=== PATIENT | male | born 1955 | race Caucasian/White ===

== ENCOUNTER → 2016-09-27 | Outpatient (CLI) | payer BC ==
[~2016-09-27] MED LIST: ASPEC81 PO; CLR10 PO; LISI5TAB3 PO; OMEP40CA PO; SIMV10TA2 PO
[2016-09-27 11:18] LABS: AST/SGOT 17 U/L (15-37); BLOOD UREA NITROGEN 26 mg/dl (7-18); BUN/CREATININE RATIO 26.2 (10-20); CARBON DIOXIDE 30 mmol/L (21-32); CHLORIDE 106 mmol/L (98-107); GLUCOSE 106 mg/dl (70-99); POTASSIUM 4.4 mmol/L (3.5-5.1); SODIUM 141 mmol/L (136-145)
[2016-09-27 11:21] LABS: ALT/SGPT 26 U/L (12-78); CHOLESTEROL 155 mg/dl (0-200); HDL CHOLESTEROL 52 mg/dl; LDL CHOLESTEROL CALCULATED 91 mg/dl; TRIGLYCERIDES 62 mg/dl (0-150); VERY LOW DENSITY LIPOPROT CALC 12 mg/dl
[2016-09-27 12:29] LABS: ESTIMATED AVERAGE GLUCOSE 123 mg/dl; HA1C FLAG Normal (Normal)
== END | disposition home or self-care (01) ==
LOC: C.LABBC 07:36
DX: I10 Essential (primary) hypertension (principal); E78.5 Hyperlipidemia, unspecified; R73.9 Hyperglycemia, unspecified

== ENCOUNTER → 2017-04-12 | Outpatient (CLI) | payer BC ==
[2017-04-12 11:14] LABS: ALT/SGPT 23 U/L (12-78); AST/SGOT 20 U/L (15-37); BLOOD UREA NITROGEN 25 mg/dl (7-18); BUN/CREATININE RATIO 22.8 (10-20); CALCIUM 8.8 mg/dl (8.5-10.1); CARBON DIOXIDE 29 mmol/L (21-32); CHLORIDE 106 mmol/L (98-107); GLUCOSE 95 mg/dl (70-99); POTASSIUM 4.1 mmol/L (3.5-5.1); SODIUM 138 mmol/L (136-145)
== END | disposition home or self-care (01) ==
LOC: C.LABBC 07:27
DX: I10 Essential (primary) hypertension (principal); E78.5 Hyperlipidemia, unspecified

== ENCOUNTER → 2017-08-19 | Outpatient (CLI) | payer OTHER ==
--- NOTE | 2017-08-19 11:14 | DIAGNOSTIC IMAGING REPORT ---
TEMPOROMANDIBULAR JOINT CLINICAL HISTORY: R TMJ PAIN AND DYSFUNCTION pain COMPARISON STUDY: None FINDINGS: Opening closed mouth images of the temporomandibular joints show diminished anterior translation of the temporomandibular joints bilaterally. This is more prominent on the right as compared to the left. In the closed mouth position seen of the mandibular condyles is near anatomic. This appearance suggests anterior meniscal dislocation. IMPRESSION: 1. Very poor anterior translation of the mandibular condyles on the right and to lesser extent left. 2. This suggests possibility of anterior meniscal dislocation bilaterally. The above report was generated using voice recognition software. It may contain grammatical, syntax or spelling errors. Electronically signed by: Narciso Flowers M.D. 08/19/2017 11:13 AM Dictated Date/Time: 08/19/2017 11:12 AM
== END | disposition home or self-care (01) ==
LOC: C.RAD 10:50
PROVIDERS: ATTEND Chiropractor
DX: R68.84 Jaw pain (principal)

== ENCOUNTER → 2017-10-13 | Outpatient (CLI) | payer OTHER ==
[2017-10-13 11:22] LABS: ALT/SGPT 27 U/L (12-78); AST/SGOT 21 U/L (15-37); BLOOD UREA NITROGEN 24 mg/dl (7-18); CALCIUM 9.4 mg/dl (8.5-10.1); CARBON DIOXIDE 31 mmol/L (21-32); CHOLESTEROL 143 mg/dl (0-200); CREATININE 1.05 mg/dl (0.60-1.40); GLUCOSE 93 mg/dl (70-99); POTASSIUM 4.4 mmol/L (3.5-5.1); SODIUM 137 mmol/L (136-145)
[2017-10-13 11:25] LABS: LDL CHOLESTEROL CALCULATED 78 mg/dl
[2017-10-13 11:39] LABS: HEMOGLOBIN A1C 5.8 % (4.5-5.6)
== END | disposition home or self-care (01) ==
LOC: C.LABBC 07:41
DX: I10 Essential (primary) hypertension (principal); E78.5 Hyperlipidemia, unspecified

== ENCOUNTER 2025-04-16 11:57 | Inpatient (IN) ==
--- NOTE | 2025-04-16 12:12 | Emergency Department Note ---
Impression & Plan Atrial fibrillation with rapid ventricular response, Generalized weakness, Acute dehydration ED Provider Note NAME: ABRAM MADRIGAL AGE: 69 SEX: M : 1955 ARRIVES VIA: Ambulance INFORMANT: Patient, EMS ED PROVIDER(S): Yovanny Gomez DO CHIEF COMPLAINT: Weakness HPI: The patient is a 69-year-old male who presented to the emergency department by ambulance for generalized weakness. The patient's been having diarrhea over the last few days. Today he was having difficulty ambulating. His significant other called 911. The patient denies having any chest pain. He denies having any headache. He was felt to be somewhat confused by the prehospital personnel. The patient denies having any head injury. He denies having any lower extremity swelling or pain. He does have a history of atrial fibrillation. He does take blood thinners and states he has been compliant with his outpatient medication regimen. The patient was treated with IV fluids prior to arrival. ROS: See above HPI for pertinent positives & negatives. A total of 10 systems reviewed and were otherwise negative. PAST MEDICAL HISTORY: See Below PAST SURGICAL HISTORY: See Below FAMILY HISTORY: See Below SOCIAL HISTORY: See Below HOME MEDICATIONS: See Below ALLERGIES: See Below VITALS: See Below PHYSICAL EXAMINATION: GENERAL: The patient is awake and alert. He appears comfortable. EYES: The conjunctivae are clear. The pupils are round and reactive. EARS, NOSE, MOUTH AND THROAT: The nose is without any evidence of any deformity. NECK: The neck is nontender and supple. RESPIRATORY: Normal respiratory effort is noted there is no evidence of wheezing rhonchi or rales CARDIOVASCULAR: Tachycardic and irregular heart sounds were noted to auscultation. There is no definite murmur. GASTROINTESTINAL: The abdomen is soft. Abdomen is nontender. MUSCULOSKELETAL/EXTREMITIES: There is no evidence of gross deformity full range of motion is noted in the hips and shoulders. SKIN: There is no obvious evidence of any rash. There are no petechiae, pallor or cyanosis noted. NEUROLOGIC: Patient is awake and oriented x3 strength is symmetric patellar reflexes are 2+ bilaterally. Site Planner strength is symmetric. NIH is 0 MEDICAL DECISION MAKING: The patient is a 69-year-old male who presented to the emergency department for an evaluation of generalized weakness. The patient's been having some loose stools over the course the last few days. The patient had weakness while he was trying to ambulate. He was with his significant other who called 911. The patient was found to be in atrial fibrillation with RVR. This was treated with IV fluids IV magnesium as well as IV Cardizem. On reevaluation his pulse rate had improved. He was feeling somewhat improved. Given the patient's recent GI illness I would wonder if he is mildly dehydrated. He was found to have an elevation in his hemoglobin. I discussed the patient's laboratory and radiographic studies with him and his significant other. Given his findings I discussed his condition with the on-call [facility] group. They have agreed to evaluate the patient in the emergency department. Triage Nursing notes reviewed. Prior medical records reviewed Vital Signs: reviewed and remarkable for tachycardia. Differential diagnosis: Infection, dehydration, metabolic abnormality, hypo/hyperglycemia, electrolyte disturbance, anemia, hypoxia, cardiac sources, intracerebral event, toxicologic, neurologic, as well as other pathologies. ER treatment provided: See below Diagnostics interpreted by me: ECG: EKG was obtained in the emergency department. My interpretation is atrial fibrillation at 138 bpm. No PVCs were noted. Nonspecific ST abnormalities were appreciated. This was compared to a tracing from March 02, 2023. Sinus rhythm has been replaced with rapid atrial fibrillation compared to the previous tracing. Cardiac Monitoring: An order was placed for continuous cardiac monitoring. The monitor shows a rate of 107 bpm with atrial fibrillation. Laboratory studies: As stated above and show below. Imaging studies: See below. Radiographic imaging was reviewed by myself Consultation(s): I discussed this case with Dr. Ruiz who is on-call for the [facility] group. Past Med/Surg History Problem List (Updated 04/16/25 @ 15:06 by Yovanny Gomez DO) Acute dehydration (Acute) Generalized weakness (Acute) Atrial fibrillation with rapid ventricular response (Acute) Trigeminal autonomic cephalgias Bursitis of right hip Erectile dysfunction Atrial fibrillation (~01/20/23) Vitamin D deficiency Prediabetes Hypercholesteremia Hypertension GERD (gastroesophageal reflux disease) Canales's esophagus Arthritis Elevated PSA Migraine headache without aura Vitamin B12 deficiency BPH NOS w ur obs/LUTS Surgical History History of surgery vein surgery History of colonoscopy Hx of endoscopy H/O knee surgery History of appendectomy Family History Brother Esophageal cancer Heart disease Other Diabetes Denies family history of Ovarian cancer Prostate cancer Myocardial infarction Breast cancer Colorectal cancer Social History Smoking Status: Never smoker Tobacco Type: Declines Age Started Using Tobacco: 18; Age Quit Using Tobacco: 33; Second Hand Exposure: No; Do You Dip or Chew Tobacco: No; Hx Alcohol Use: Yes (Socially ) Hx Substance Use: No Preferred Language: Yakut Communication Ability: Effective Visual Impairment: Partially Limited Hearing Ability: Normal marital status: Current Living Situation: Spouse Current Living Situation Comment: current occupational status: retired How many Children do You have: 3 Feels Safe at Home: Yes Childhood Exposure to Second-Hand Smoke: Yes Diet: regular caffeine: Yes during the past year weight has: remained stable Dental Care, Regularly: Yes Physical Activity Frequency: 5-6 Times per Week Seatbelt Use: always Sunscreen Use: Yes Gender Identity: Male Assistive Devices: Glasses Allergies Allergies Allergy/AdvReac Type Severity Reaction Status Date / Time No Known Allergies Allergy Verified 04/08/25 08:53 Home Meds Home Medications Medication Instructions Recorded Confirmed metoprolol succinate 25 mg mg PO DAILY 03/25/25 04/08/25 tablet,extended release 24 hr Previous Rx's Medication Instructions Recorded cyanocobalamin (vitamin B-12) 2,500 mcg PO DAILY #30 tabs 12/08/21 2,500 mcg tablet cholecalciferol (vitamin D3) 50 50 mcg PO DAILY #30 caps 04/01/22 mcg (2,000 unit) capsule ferrous sulfate 325 mg (65 mg 325 mg PO DAILY #30 tabs 04/01/22 iron) tablet sildenafil 50 mg tablet 50 mg PO DAILY PRN sexual activity 03/08/24 #30 tabs tamsulosin 0.4 mg capsule 0.4 mg PO DAILY #90 caps 05/09/24 apixaban 5 mg tablet 5 mg PO BID #180 tabs 01/01/25 vibegron 75 mg tablet (Gemtesa) 75 mg PO DAILY #90 tabs 01/03/25 divalproex 500 mg tablet,extended 1,000 mg (2 x 500 mg) PO DAILY #60 02/20/25 release 24 hr tabs rizatriptan 10 mg disintegrating 10 mg PO Q2H PRN migraine headache 02/20/25 tablet #12 tabs atorvastatin 20 mg tablet 20 mg PO DAILY #90 tabs 02/22/25 triamcinolone acetonide 0.1 % 1 applic topical BID #15 grams 03/07/25 topical ointment omeprazole 40 mg capsule,delayed 40 mg PO BID #180 caps 03/26/25 release lisinopril 5 mg tablet 5 mg PO DAILY PRN elevated blood 04/14/25 pressure #30 tabs Results & Data (ED) Vital Signs Vital Signs - 24 hr 04/16/25 12:04 04/16/25 12:04 04/16/25 12:05 Temperature Temperature Source Pulse Rate 133 H Pulse Rate [Apical] Respiratory Rate Blood Pressure 111/92 111/92 Blood Pressure [Right Arm] Blood Pressure Mean 100 100 Blood Pressure Mean [Right Arm] Pulse Oximetry Oxygen Delivery Method Sepsis Recent Fever Within 48 Hours Sepsis New/Unexplained Change in Mental Status Sepsis Action Taken by Nursing 04/16/25 12:07 04/16/25 12:09 04/16/25 12:09 Temperature 36.7 C Temperature Source Oral Pulse Rate 122 H Pulse Rate [Apical] Respiratory Rate 19 Blood Pressure 111/92 Blood Pressure [Right Arm] Blood Pressure Mean 98 Blood Pressure Mean [Right Arm] Pulse Oximetry 96 96 96 Oxygen Delivery Method Room Air Room Air Room Air Sepsis Recent Fever Within 48 Hours No Sepsis New/Unexplained Change in Mental Status N/A Sepsis Action Taken by Nursing No Action Required 04/16/25 12:15 04/16/25 12:27 04/16/25 12:30 Temperature Temperature Source Pulse Rate 123 H 132 H Pulse Rate [Apical] Respiratory Rate 20 26 H Blood Pressure 109/77 Blood Pressure [Right Arm] Blood Pressure Mean 97 Blood Pressure Mean [Right Arm] Pulse Oximetry 93 95 Oxygen Delivery Method Sepsis Recent Fever Within 48 Hours Sepsis New/Unexplained Change in Mental Status Sepsis Action Taken by Nursing 04/16/25 12:33 04/16/25 13:00 04/16/25 13:18 Temperature Temperature Source Pulse Rate 129 H 132 H 104 H Pulse Rate [Apical] Respiratory Rate 24 21 22 Blood Pressure Blood Pressure [Right Arm] Blood Pressure Mean Blood Pressure Mean [Right Arm] Pulse Oximetry 95 Oxygen Delivery Method Sepsis Recent Fever Within 48 Hours Sepsis New/Unexplained Change in Mental Status Sepsis Action Taken by Nursing 04/16/25 13:21 04/16/25 13:30 04/16/25 13:30 Temperature Temperature Source Pulse Rate 128 H Pulse Rate [Apical] Respiratory Rate 24 Blood Pressure 127/91 127/91 Blood Pressure [Right Arm] Blood Pressure Mean 94 94 Blood Pressure Mean [Right Arm] Pulse Oximetry 94 Oxygen Delivery Method Sepsis Recent Fever Within 48 Hours Sepsis New/Unexplained Change in Mental Status Sepsis Action Taken by Nursing 04/16/25 13:30 04/16/25 13:49 04/16/25 13:54 Temperature Temperature Source Pulse Rate 140 H 105 H Pulse Rate [Apical] 125 H Respiratory Rate 23 20 23 Blood Pressure Blood Pressure [Right Arm] 127/91 Blood Pressure Mean Blood Pressure Mean [Right Arm] 103 Pulse Oximetry 94 95 Oxygen Delivery Method Room Air Sepsis Recent Fever Within 48 Hours Sepsis New/Unexplained Change in Mental Status Sepsis Action Taken by Nursing 04/16/25 14:00 04/16/25 14:01 04/16/25 14:25 Temperature Temperature Source Pulse Rate 107 H Pulse Rate [Apical] Respiratory Rate 24 Blood Pressure 121/89 119/99 Blood Pressure [Right Arm] Blood Pressure Mean 98 105 Blood Pressure Mean [Right Arm] Pulse Oximetry Oxygen Delivery Method Sepsis Recent Fever Within 48 Hours Sepsis New/Unexplained Change in Mental Status Sepsis Action Taken by Usp Medications Current Medication List: was personally reviewed by me Laboratory Data Attestation: I reviewed the patient's lab results. 04/16/25 12:07 04/16/25 12:07 Lab Results 04/16/25 04/16/25 04/16/25 Range/Units 12:07 12:09 12:10 WBC 16.47 H (4.8-10.8) K/ul RBC 5.39 (4.70-6.10) M/uL Hgb 18.1 H (14.0-18.0) g/dl Hct 51.4 (42.0-52.0) % MCV 95.4 (80.0-100.0) fL MCH 33.6 (25.0-34.0) pg MCHC 35.2 (32.0-36.0) g/dL RDW Std Deviation 46.1 (36.4-46.3) fL RDW Coeff of Rafal 13.0 (11.5-14.5) % Plt Count 143 (130-400) K/uL MPV 9.3 L (9.4-12.4) fL Immature Gran % (Auto) 0.4 % Neut % (Auto) 69.2 % Lymph % (Auto) 20.7 % [place] % (Auto) 9.3 % Eos % (Auto) 0.1 % Baso % (Auto) 0.3 % Neut # (Auto) 11.40 H (1.40-6.50) K/uL Lymph # (Auto) 3.41 H (1.20-3.40) K/uL [place] # (Auto) 1.53 H (0.11-0.59) K/uL Eos # (Auto) 0.02 (0.00-0.50) K/uL Baso # (Auto) 0.05 (0.00-0.20) K/uL Immature Gran # (Auto) 0.06 (0.01-0.20) K/uL PT 11.7 (9.0-12.0) Seconds INR 1.1 (0.9-1.1) APTT 27 (21-31) Seconds PTT Ratio 1.0 VBG pH 7.40 (7.36-7.41) VBG pCO2 51 H (38-50) mmHg VBG pO2 23 mmHg VBG HCO3 32 mmol/L VBG O2 Saturation < 60.0 % VBG Base Excess 5.0 mEq/L Sodium 138 (136-145) mmol/L Potassium 4.4 (3.5-5.1) mmol/L Chloride 102 (98-107) mmol/L Carbon Dioxide 30 (21-32) mmol/L Anion Gap 6 (3-11) BUN 16 (6-23) mg/dl Creatinine 1.05 (0.6-1.4) mg/dl Est Cr Clr Drug Dosing 68.7 ml/min eGFR 75.89 BUN/Creatinine Ratio 15.2 (10-20) Glucose 113 H (70-99(Fasting)) mg/dl POC Glucose 106 H (70-99) mg/dl Calcium 9.0 (8.6-10.3) mg/dl Magnesium 1.8 (1.7-2.4) mg/dl Total Bilirubin 1.0 (0.2-1.0) mg/dl AST 16 (13-39) U/L ALT 12 (7-52) U/L Alkaline Phosphatase 48 (34-104) U/L Ammonia 29.0 (18-72) umol/L Total Creatine Kinase 51 (30-223) U/L Troponin I High Sens 7.6 (0-20) pg/ml Total Protein 6.9 (6.0-8.3) gm/dl Albumin 3.9 (3.4-5.0) gm/dl Globulin 3.0 (2.5-4.0) gm/dl Albumin/Globulin Ratio 1.3 (0.9-2) TSH 1.640 (0.300-4.500) uIu/ml Urine Color Urine Appearance (Clear) Urine pH (4.5-7.5) Ur Specific [place] (1.000-1.030) Urine Protein (Negative) Urine Glucose (UA) (Negative) Urine Ketones (Negative) Urine Blood (Negative) Urine Nitrite (Negative) Urine Bilirubin (Negative) Urine Urobilinogen (Negative) Ur Leukocyte Esterase (Negative) Urine Comment Adenovirus (PCR) Not Detected (NotDetected) B. pertussis DNA (PCR) Not Detected (NotDetected) B.parapertussis DNA PCR Not Detected (NotDetected) C. pneumoniae DNA (PCR) Not Detected (NotDetected) Coronavirus OC43 (PCR) Not Detected (NotDetected) Coronavirus HKU1 (PCR) Not Detected (NotDetected) Coronavirus 229E (PCR) Not Detected (NotDetected) SARS-CoV-2 (PCR) Not Detected (NotDetected) Coronavirus NL63 (PCR) Not Detected (NotDetected) Human Metapneumovir PCR Not Detected (NotDetected) Influenza Type A (PCR) Not Detected (NotDetected) Influenza Type B (PCR) Not Detected (NotDetected) M. pneumoniae (PCR) Not Detected (NotDetected) Parainfluenza 1 (PCR) Not Detected (NotDetected) Parainfluenza 2 (PCR) Not Detected (NotDetected) Parainfluenza 3 (PCR) Not Detected (NotDetected) Parainfluenza 4 (PCR) Not Detected (NotDetected) RSV (PCR) Not Detected (NotDetected) Entero/Rhino (PCR) DETECTED A (NotDetected) 04/16/25 Range/Units 13:10 WBC (4.8-10.8) K/ul RBC (4.70-6.10) M/uL Hgb (14.0-18.0) g/dl Hct (42.0-52.0) % MCV (80.0-100.0) fL MCH (25.0-34.0) pg MCHC (32.0-36.0) g/dL RDW Std Deviation (36.4-46.3) fL RDW Coeff of Rafal (11.5-14.5) % Plt Count (130-400) K/uL MPV (9.4-12.4) fL Immature Gran % (Auto) % Neut % (Auto) % Lymph % (Auto) % [place] % (Auto) % Eos % (Auto) % Baso % (Auto) % Neut # (Auto) (1.40-6.50) K/uL Lymph # (Auto) (1.20-3.40) K/uL [place] # (Auto) (0.11-0.59) K/uL Eos # (Auto) (0.00-0.50) K/uL Baso # (Auto) (0.00-0.20) K/uL Immature Gran # (Auto) (0.01-0.20) K/uL PT (9.0-12.0) Seconds INR (0.9-1.1) APTT (21-31) Seconds PTT Ratio VBG pH (7.36-7.41) VBG pCO2 (38-50) mmHg VBG pO2 mmHg VBG HCO3 mmol/L VBG O2 Saturation % VBG Base Excess mEq/L Sodium (136-145) mmol/L Potassium (3.5-5.1) mmol/L Chloride (98-107) mmol/L Carbon Dioxide (21-32) mmol/L Anion Gap (3-11) BUN (6-23) mg/dl Creatinine (0.6-1.4) mg/dl Est Cr Clr Drug Dosing ml/min eGFR BUN/Creatinine Ratio (10-20) Glucose (70-99(Fasting)) mg/dl POC Glucose (70-99) mg/dl Calcium (8.6-10.3) mg/dl Magnesium (1.7-2.4) mg/dl Total Bilirubin (0.2-1.0) mg/dl AST (13-39) U/L ALT (7-52) U/L Alkaline Phosphatase (34-104) U/L Ammonia (18-72) umol/L Total Creatine Kinase (30-223) U/L Troponin I High Sens (0-20) pg/ml Total Protein (6.0-8.3) gm/dl Albumin (3.4-5.0) gm/dl Globulin (2.5-4.0) gm/dl Albumin/Globulin Ratio (0.9-2) TSH (0.300-4.500) uIu/ml Urine Color Yellow Urine Appearance Clear (Clear) Urine pH 7.0 (4.5-7.5) Ur Specific [place] 1.014 (1.000-1.030) Urine Protein Negative (Negative) Urine Glucose (UA) Negative (Negative) Urine Ketones Trace H (Negative) Urine Blood Negative (Negative) Urine Nitrite Negative (Negative) Urine Bilirubin Negative (Negative) Urine Urobilinogen Negative (Negative) Ur Leukocyte Esterase Negative (Negative) Urine Comment Adenovirus (PCR) (NotDetected) B. pertussis DNA (PCR) (NotDetected) B.parapertussis DNA PCR (NotDetected) C. pneumoniae DNA (PCR) (NotDetected) Coronavirus OC43 (PCR) (NotDetected) Coronavirus HKU1 (PCR) (NotDetected) Coronavirus 229E (PCR) (NotDetected) SARS-CoV-2 (PCR) (NotDetected) Coronavirus NL63 (PCR) (NotDetected) Human Metapneumovir PCR (NotDetected) Influenza Type A (PCR) (NotDetected) Influenza Type B (PCR) (NotDetected) M. pneumoniae (PCR) (NotDetected) Parainfluenza 1 (PCR) (NotDetected) Parainfluenza 2 (PCR) (NotDetected) Parainfluenza 3 (PCR) (NotDetected) Parainfluenza 4 (PCR) (NotDetected) RSV (PCR) (NotDetected) Entero/Rhino (PCR) (NotDetected) Administered Medications Discontinued Medications Diltiazem HCl (Diltiazem Hcl 5 Mg/Ml 5 Ml Vial) 10 mg IV NOW STA Stop: 04/16/25 14:15 Last Admin: 04/16/25 14:22 Dose: 10 mg Documented By: JIGNA Co-signed By: ERLINDA Sodium Chloride (Nss) 500 mls @ 999 mls/hr IV .Q31M ONE Stop: 04/16/25 12:52 Last Infusion: 04/16/25 13:25 Dose: Infused Documented By: Admin: 04/16/25 12:33 Dose: 999 mls/hr Documented By: AMEENA Magnesium Sulfate/Dextrose (Magnesium Sulfate / D5w) 1 gm in 100 mls @ 100 mls/hr IV Q1H NELI Stop: 04/16/25 14:21 Last Infusion: 04/16/25 14:16 Dose: Infused Documented By: Admin: 04/16/25 13:25 Dose: 100 mls/hr Documented By: Infusion: 04/16/25 13:25 Dose: Infused Documented By: Admin: 04/16/25 12:34 Dose: 100 mls/hr Documented By: AMENEA Sodium Chloride (Nss) 500 mls @ 999 mls/hr IV .Q31M ONE Stop: 04/16/25 14:52 Last Admin: 04/16/25 14:27 Dose: 999 mls/hr Documented By: JIGNA Imaging Data Attestation: I personally reviewed and interpreted this imaging study as follows: My Impression: 1 view chest x-ray was obtained in the emergency department. My interpretation is no free air or definite infiltrate, final report below. Radiologist's Impression: Chest X-Ray 04/16/25 12:01 XR chest 1V portable CLINICAL HISTORY: weakness COMPARISON STUDY: 02/28/2018 FINDINGS: Stable mild cardiomegaly without pulmonary vascular congestion. No consolidation or pleural effusion. No pneumothorax. IMPRESSION: No acute findings. ACT 112: Negative or not required by law. Electronically signed by: Hermelindo Vences M.D. 04/16/2025 12:[address] 04/16/25 12:01 CT SCAN OF THE BRAIN WITHOUT IV CONTRAST CLINICAL HISTORY: Change in mental status. COMPARISON STUDY: MRI of the brain dated 11/20/2021 TECHNIQUE: Unenhanced CT scan of the brain is performed from the vertex to the skull base. Images are reviewed in the axial, sagittal, coronal planes. A dose lowering technique was utilized adhering to the principles of ALARA. CT DOSE: 625.8 mGy.cm FINDINGS: Brain parenchyma: There is age-related involutional change noting mild subcortical and periventricular microangiopathic disease. There is no hemorrhage, mass effect, or evidence of acute territorial ischemia by CT criteria. [place]as[place]-white matter differentiation is preserved. No extra-axial fluid collection is seen. Ventricles, sulci, cisterns: Prominent secondary to involutional change. Intracranial vasculature: There is mild atherosclerotic calcification of the cavernous carotid and vertebral arteries. Calvarium: Unremarkable. Sinuses and mastoids: There is trace mucosal thickening in the right sphenoid sinus. The visualized paranasal sinuses are otherwise clear. The mastoid air cells are well pneumatized. Orbits: The bony orbits are grossly intact. IMPRESSION: There is no hemorrhage, mass effect, or evidence of acute territorial ischemia by CT criteria. ACT 112: Negative or not required by law. Electronically signed by: Winston Fowler M.D. 04/16/2025 12:49 PM Discharge Plan Visit Data Chief Complaint: Weakness ED Provider: Yovanny Gomez Discharge Problem: Atrial fibrillation with rapid ventricular response, Generalized weakness, Acute dehydration Patient Disposition: Being Evaluated by Hospitalist Condition: Fair Forms Stand Alone Forms: My [facility] Prescriptions Prescriptions: No Action cholecalciferol (vitamin D3) 50 mcg (2,000 unit) capsule 50 mcg PO DAILY Qty: 30 8RF ferrous sulfate 325 mg (65 mg iron) tablet 325 mg PO DAILY Qty: 30 8RF sildenafil 50 mg tablet 50 mg PO DAILY PRN (Reason: sexual activity) Qty: 30 3RF Rx Instructions: administer 30 minutes to 4 hours before activity tamsulosin 0.4 mg capsule 0.4 mg PO DAILY Qty: 90 3RF apixaban 5 mg tablet 5 mg PO BID Qty: 180 3RF Gemtesa 75 mg tablet 75 mg PO DAILY Qty: 90 3RF atorvastatin 20 mg tablet 20 mg PO DAILY Qty: 90 3RF omeprazole 40 mg capsule,delayed release(DR/EC) 40 mg PO BID Qty: 180 3RF cyanocobalamin (vitamin B-12) 2,500 mcg tablet 2,500 mcg PO DAILY Qty: 30 8RF divalproex 500 mg tablet extended release 24 hr 1,000 mg PO DAILY Qty: 60 5RF rizatriptan 10 mg tablet,disintegrating 10 mg PO Q2H PRN (Reason: migraine headache) Qty: 12 5RF Rx Instructions: do not exceed 3 doses per 24 hrs lisinopril 5 mg tablet 5 mg PO DAILY PRN (Reason: elevated blood pressure ) Qty: 30 0RF triamcinolone acetonide 0.1 % ointment 1 applic topical BID Qty: 15 1RF metoprolol succinate 25 mg tablet extended release 24 hr PO DAILY Referrals Referrals: Lisa Browning MD [Primary Care Provider] -
--- NOTE | 2025-04-16 12:15 | XRay Report ---
XR chest 1V portable CLINICAL HISTORY: weakness COMPARISON STUDY: 02/28/2018 FINDINGS: Stable mild cardiomegaly without pulmonary vascular congestion. No consolidation or pleural effusion. No pneumothorax. IMPRESSION: No acute findings. ACT 112: Negative or not required by law. Electronically signed by: Hermelindo Vences M.D. 04/16/2025 12:13 PM
[2025-04-16 12:18] LABS: Base Excess VBG 5.0 mEq/L; HCO3 VBG 32 mmol/L; Oxygen Saturation VBG < 60.0 %; PCO2 VBG 51 mmHg (38-50); PO2 VBG 23 mmHg; pH VBG 7.40 (7.36-7.41)
[2025-04-16 12:24] LABS: Hematocrit (blood only) 51.4 % (42.0-52.0); Hemoglobin 18.1 g/dl (14.0-18.0); Immature Granulocytes # (auto) 0.06 K/uL (0.01-0.20); Immature Granulocytes % (auto) 0.4 %; Mean Corpuscular Hemoglobin 33.6 pg (25.0-34.0); Mean Corpuscular Volume 95.4 fL (80.0-100.0); Platelet Count 143 K/uL (130-400); RDW Standard Deviation 46.1 fL (36.4-46.3); Red Blood Count 5.39 M/uL (4.70-6.10); White Blood Count 16.47 K/ul (4.8-10.8)
[2025-04-16] MEDS: SODIUM CHLORIDE 0.9% 500 ML IV ONE ×2 (12:33→14:27)
[2025-04-16] MEDS: MAGNESIUM SULFATE / D5W 1 GM/100 ML BAG IV SCH (12:34)
[2025-04-16 12:51] LABS: INR 1.1 (0.9-1.1); Partial Thromboplastin Time 27 Seconds (21-31); Prothrombin Time 11.7 Seconds (9.0-12.0)
--- NOTE | 2025-04-16 12:51 | CT Scan Report ---
CT SCAN OF THE BRAIN WITHOUT IV CONTRAST CLINICAL HISTORY: Change in mental status. COMPARISON STUDY: MRI of the brain dated 11/20/2021 TECHNIQUE: Unenhanced CT scan of the brain is performed from the vertex to the skull base. Images are reviewed in the axial, sagittal, coronal planes. A dose lowering technique was utilized adhering to the principles of ALARA. CT DOSE: 625.8 mGy.cm FINDINGS: Brain parenchyma: There is age-related involutional change noting mild subcortical and periventricula r microangiopathic disease. There is no hemorrhage, mass effect, or evidence of acute territorial isc hemia by CT criteria. [place]-white matter differentiation is preserved. No extra-axial fluid collection is seen. Ventricles, sulci, cisterns: Prominent secondary to involutional change. Intracranial vasculature: There is mild atherosclerotic calcification of the cavernous carotid and ve rtebral arteries. Calvarium: Unremarkable. Sinuses and mastoids: There is trace mucosal thickening in the right sphenoid sinus. The visualized p aranasal sinuses are otherwise clear. The mastoid air cells are well pneumatized. Orbits: The bony orbits are grossly intact. IMPRESSION: There is no hemorrhage, mass effect, or evidence of acute territorial ischemia by CT hajat james. ACT 112: Negative or not required by law. Electronically signed by: Winston Fowler M.D. 04/16/2025 12:49 PM
[2025-04-16 13:01] LABS: Alanine Aminotransferase 12.0 U/L (7-52); Albumin Globulin Ratio 1.3 (0.9-2); Albumin Level 3.9 gm/dl (3.4-5.0); Alkaline Phosphatase 48.0 U/L (34-104); Anion Gap 6.0 (3-11); Bilirubin,Total 1.0 mg/dl (0.2-1.0); Blood Urea Nitrogen 16.0 mg/dl (6-23); Calcium 9.0 mg/dl (8.6-10.3); Carbon Dioxide 30.0 mmol/L (21-32); Chloride 102.0 mmol/L (98-107); Creatine Kinase 51.0 U/L (30-223); Creatinine Clr Calc Pharmacy 68.7 ml/min; Globulin 3.0 gm/dl (2.5-4.0); Glucose 113.0 mg/dl (70-99(Fasting)); Magnesium 1.8 mg/dl (1.7-2.4); Potassium 4.4 mmol/L (3.5-5.1); Sodium 138.0 mmol/L (136-145); Total Protein 6.9 gm/dl (6.0-8.3)
[2025-04-16 13:13] LABS: Thyroid Stimulating Hormone 1.64 uIu/ml (0.300-4.500)
[2025-04-16 13:42] LABS: Appearance Urine Clear (Clear); Glucose Urine UA Negative (Negative)
[2025-04-16 13:56] LABS: Chlamydia pneumoniae PCR Not Detected (NotDetected); Coronavirus 229E PCR Not Detected (NotDetected); Coronavirus CoV-2 (COVID19)PCR Not Detected (NotDetected); Coronavirus HKU1 PCR Not Detected (NotDetected); Coronavirus NL63 PCR Not Detected (NotDetected); Coronavirus OC43PCR Not Detected (NotDetected); Human Metapneumovirus PCR Not Detected (NotDetected); Parainfluenza Virus 1 PCR Not Detected (NotDetected); Parainfluenza Virus 2 PCR Not Detected (NotDetected); Parainfluenza Virus 3 PCR Not Detected (NotDetected); Parainfluenza Virus 4 PCR Not Detected (NotDetected); Respiratory Syncytial VirusPCR Not Detected (NotDetected); Rhinovirus/Enterovirus PCR DETECTED (NotDetected)
--- NOTE | 2025-04-16 15:24 | History & Physical Report ---
Date of Service April 16, 2025 Assessment & Plan (1) Acute dehydration: (2) Generalized weakness: (3) Atrial fibrillation with rapid ventricular response: (4) Trigeminal autonomic cephalgias: (5) Vitamin D deficiency: (6) Prediabetes: (7) Canales's esophagus: (8) Elevated PSA: Plan #Weakness #SIRS #enteroviral infection - multifactorial, volume depletion secondary to recent viral infection, will continue to trend inflammatory markers, no indication for antibiotics at this time. - Normal saline at 100 cc/h through the night - PT and OT assessment in the morning - admit telemetry given atrial fibrillation and history of coronary disease belo w #ketones in urine #volume depletion - fluids as above #atrial fibrillation - improving with fluid resuscitation, continue metoprolol, continue apixaban #coronary disease - no concerning symptoms for ACS, will continue to monitor with telemetry #chronic venous stasis changes - he has an upcoming procedure planned, monitor ulceration and consult wound care #polycythemia - likely secondary to volume depletion, fluid resuscitation as noted below. Repeat a.m. labs #hypertension - at goal at this time, continue antihypertensives #prediabetes - A1c is 6, will check AC blood sugars with sliding scale initially #GERD #Canales's esophagus - continue Protonix #prior Lyme positive serology - will review outpatient notes, this was ordered a few weeks ago. Result just appearing no clear indication of active infection #FEN #cognitive changes - ongoing outpatient workup, CT was negative here. With any cognitive or s ignificant short-term changes will consider MRI. This is scheduled as an outpatient #CODE STATUS - DNR/DNI per his wishes. According to his they both have advanced di rectives with this documented History of Present Illness Chief Complaint: Weakness Primary Care Provider: Lisa Browning MD 69-year-old male history of atrial fibrillation, known coronary disease, chronic venous stasis with ulcerations, trigeminal autonomic cephalgia, migraine, hypertension, hypercholesterolemia, GERD with Canales's esophagus, elevated PSA, vitamin B12 deficiency presents to the emergency department with a 2-day history of upper head cold congestion, sore throat and now with diarrhea. Predominant presenting complaint was the overall weakness. Denies any dizziness orthostasis PND. No worsening lower extremity edema. Initial evaluation in the emergency department showed elevated hemoglobin, clinical signs of dehydration, likely volume depletion with mild tachycardia. Concern for sepsis. [employer] revealed enterovirus positive. Secondary to his weakness, tachycardia and minimal improvement with symptoms he referred for admission for further resuscitation, evaluation and supportive cares Allergies Allergy/AdvReac Type Severity Reaction Status Date / Time No Known Allergies Allergy Verified 04/08/25 08:53 Home Medications Medication Instructions Recorded Confirmed Type cyanocobalamin (vitamin B-12) 2,500 mcg PO DAILY #30 tabs 12/08/21 04/16/25 Rx 2,500 mcg tablet cholecalciferol (vitamin D3) 50 50 mcg PO DAILY #30 caps 04/01/22 04/16/25 Rx mcg (2,000 unit) capsule ferrous sulfate 325 mg (65 mg 325 mg PO DAILY #30 tabs 04/01/22 04/16/25 Rx iron) tablet sildenafil 50 mg tablet 50 mg PO DAILY PRN sexual activity 03/08/24 04/16/25 Rx #30 tabs tamsulosin 0.4 mg capsule 0.4 mg PO DAILY #90 caps 05/09/24 04/16/25 Rx apixaban 5 mg tablet 5 mg PO BID #180 tabs 01/01/25 04/16/25 Rx vibegron 75 mg tablet (Gemtesa) 75 mg PO DAILY #90 tabs 01/03/25 04/16/25 Rx divalproex 500 mg tablet,extended 1,000 mg (2 x 500 mg) PO DAILY #60 02/20/25 04/16/25 Rx release 24 hr tabs rizatriptan 10 mg disintegrating 10 mg PO Q2H PRN migraine headache 02/20/25 04/16/25 Rx tablet #12 tabs atorvastatin 20 mg tablet 20 mg PO DAILY #90 tabs 02/22/25 04/16/25 Rx metoprolol succinate 25 mg 50 mg PO DAILY 03/25/25 04/16/25 History tablet,extended release 24 hr omeprazole 40 mg capsule,delayed 40 mg PO BID #180 caps 03/26/25 04/16/25 Rx release lisinopril 5 mg tablet 0 mg PO DAILY PRN elevated blood 04/16/25 04/16/25 History pressure triamcinolone acetonide 0.1 % 0 applic topical BID 04/16/25 04/16/25 History topical ointment Past Med/Surg History Problem List (Updated 04/16/25 @ 15:06 by Yovanny Gomez DO) Acute dehydration (Acute) Generalized weakness (Acute) Atrial fibrillation with rapid ventricular response (Acute) Trigeminal autonomic cephalgias Bursitis of right hip Erectile dysfunction Atrial fibrillation (~01/20/23) Vitamin D deficiency Prediabetes Hypercholesteremia Hypertension GERD (gastroesophageal reflux disease) Canales's esophagus Arthritis Elevated PSA Migraine headache without aura Vitamin B12 deficiency BPH NOS w ur obs/LUTS Surgical History History of surgery vein surgery History of colonoscopy Hx of endoscopy H/O knee surgery History of appendectomy Family History Brother Esophageal cancer Heart disease Other Diabetes Denies family history of Ovarian cancer Prostate cancer Myocardial infarction Breast cancer Colorectal cancer Social History Smoking Status: Never smoker Tobacco Type: Declines Age Started Using Tobacco: 18; Age Quit Using Tobacco: 33; Second Hand Exposure: No; Do You Dip or Chew Tobacco: No; Hx Alcohol Use: Yes (Socially ) Hx Substance Use: No Preferred Language: Bengali Communication Ability: Effective Visual Impairment: Partially Limited Hearing Ability: Normal marital status: Current Living Situation: Spouse Current Living Situation Comment: current occupational status: retired How many Children do You have: 3 Feels Safe at Home: Yes Childhood Exposure to Second-Hand Smoke: Yes Diet: regular caffeine: Yes during the past year weight has: remained stable Dental Care, Regularly: Yes Physical Activity Frequency: 5-6 Times per Week Seatbelt Use: always Sunscreen Use: Yes Gender Identity: Male Assistive Devices: Glasses Review of Systems Constitutional: no fevers, see HPI Respiratory: no shortness of breath or wheezing Cardiovascular: Additional Comments: no palpitations or chest pain Gastrointestinal: mild loose stools, no nausea vomiting Neurologic: he reports increasing memory difficulties he is ongoing workup through the neur ology clinic with labs being evaluated. MRI is pending Physical Exam Constitutional: comfortable, sitting in hospital bed, openly conversive and appropriate, no distress Eyes: sclera clear ENMT: erythematous oropharynx, no tonsillar hypertrophy or anterior adenopathy Respiratory: clear to auscultation bilaterally Cardiovascular: tachycardic, regular, no murmurs rubs or gallops Gastrointestinal (Abdomen): normal bowel sounds, nontender, nondistended Musculoskeletal: moving all extremities with no limitations or difficulty Skin: chronic venous stasis changes in the lower extremities bilaterally with no other rash or skin change Neurologic: alert and oriented x 4, although he is somewhat slowed in response to questioning. Has difficulty with recall of recent and distant events at times. Otherwise no dysmetria or dysarthria. Results & Data Results & Data Vital Signs (Past 12 Hours) Vital Signs Temp Pulse Pulse Resp BP BP Pulse Ox 04/16/25 15:00 86 22 114/75 95 04/16/25 14:25 119/99 04/16/25 14:01 121/89 04/16/25 14:00 107 H 24 04/16/25 13:54 105 H 23 95 04/16/25 13:49 125 H 20 127/91 94 04/16/25 13:30 140 H 23 04/16/25 13:30 127/91 04/16/25 13:30 127/91 04/16/25 13:21 128 H 24 94 04/16/25 13:18 104 H 22 95 04/16/25 13:00 132 H 21 04/16/25 12:33 129 H 24 04/16/25 12:30 109/77 04/16/25 12:27 132 H 26 H 95 04/16/25 12:15 123 H 20 93 04/16/25 12:09 36.7 C 122 H 19 111/92 96 04/16/25 12:09 96 04/16/25 12:07 96 04/16/25 12:05 133 H 04/16/25 12:04 111/92 04/16/25 12:04 111/92 O2 Del Method 04/16/25 15:00 Room Air 04/16/25 14:25 04/16/25 14:01 04/16/25 14:00 04/16/25 13:54 04/16/25 13:49 Room Air 04/16/25 13:30 04/16/25 13:30 04/16/25 13:30 04/16/25 13:21 04/16/25 13:18 04/16/25 13:00 04/16/25 12:33 04/16/25 12:30 04/16/25 12:27 04/16/25 12:15 04/16/25 12:09 Room Air 04/16/25 12:09 Room Air 04/16/25 12:07 Room Air 04/16/25 12:05 04/16/25 12:04 04/16/25 12:04 Laboratory Results 04/16/25 04/16/25 04/16/25 13:10 12:10 12:09 WBC RBC Hgb Hct MCV MCH MCHC RDW Std Deviation RDW Coeff of Rafal Plt Count MPV Immature Gran % (Auto) Neut % (Auto) Lymph % (Auto) [place] % (Auto) Eos % (Auto) Baso % (Auto) Neut # (Auto) Lymph # (Auto) [place] # (Auto) Eos # (Auto) Baso # (Auto) Immature Gran # (Auto) PT INR APTT PTT Ratio VBG pH VBG pCO2 VBG pO2 VBG HCO3 VBG O2 Saturation VBG Base Excess Sodium Potassium Chloride Carbon Dioxide Anion Gap BUN Creatinine Est Cr Clr Drug Dosing eGFR BUN/Creatinine Ratio Glucose POC Glucose 106 H Calcium Magnesium Total Bilirubin AST ALT Alkaline Phosphatase Ammonia Total Creatine Kinase Troponin I High Sens Total Protein Albumin Globulin Albumin/Globulin Ratio TSH Urine Color Yellow Urine Appearance Clear Urine pH 7.0 Ur Specific [place] 1.014 Urine Protein Negative Urine Glucose (UA) Negative Urine Ketones Trace H Urine Blood Negative Urine Nitrite Negative Urine Bilirubin Negative Urine Urobilinogen Negative Ur Leukocyte Esterase Negative Urine Comment Adenovirus (PCR) Not Detected B. pertussis DNA (PCR) Not Detected B.parapertussis DNA PCR Not Detected C. pneumoniae DNA (PCR) Not Detected Coronavirus OC43 (PCR) Not Detected Coronavirus HKU1 (PCR) Not Detected Coronavirus 229E (PCR) Not Detected SARS-CoV-2 (PCR) Not Detected Coronavirus NL63 (PCR) Not Detected Human Metapneumovir PCR Not Detected Influenza Type A (PCR) Not Detected Influenza Type B (PCR) Not Detected M. pneumoniae (PCR) Not Detected Parainfluenza 1 (PCR) Not Detected Parainfluenza 2 (PCR) Not Detected Parainfluenza 3 (PCR) Not Detected Parainfluenza 4 (PCR) Not Detected RSV (PCR) Not Detected Entero/Rhino (PCR) DETECTED A 04/16/25 12:07 WBC 16.47 H RBC 5.39 Hgb 18.1 H Hct 51.4 MCV 95.4 MCH 33.6 MCHC 35.2 RDW Std Deviation 46.1 RDW Coeff of Rafal 13.0 Plt Count 143 MPV 9.3 L Immature Gran % (Auto) 0.4 Neut % (Auto) 69.2 Lymph % (Auto) 20.7 [place] % (Auto) 9.3 Eos % (Auto) 0.1 Baso % (Auto) 0.3 Neut # (Auto) 11.40 H Lymph # (Auto) 3.41 H [place] # (Auto) 1.53 H Eos # (Auto) 0.02 Baso # (Auto) 0.05 Immature Gran # (Auto) 0.06 PT 11.7 INR 1.1 APTT 27 PTT Ratio 1.0 VBG pH 7.40 VBG pCO2 51 H VBG pO2 23 VBG HCO3 32 VBG O2 Saturation < 60.0 VBG Base Excess 5.0 Sodium 138 Potassium 4.4 Chloride 102 Carbon Dioxide 30 Anion Gap 6 BUN 16 Creatinine 1.05 Est Cr Clr Drug Dosing 68.7 eGFR 75.89 BUN/Creatinine Ratio 15.2 Glucose 113 H POC Glucose Calcium 9.0 Magnesium 1.8 Total Bilirubin 1.0 AST 16 ALT 12 Alkaline Phosphatase 48 Ammonia 29.0 Total Creatine Kinase 51 Troponin I High Sens 7.6 Total Protein 6.9 Albumin 3.9 Globulin 3.0 Albumin/Globulin Ratio 1.3 TSH 1.640 Urine Color Urine Appearance Urine pH Ur Specific [place] Urine Protein Urine Glucose (UA) Urine Ketones Urine Blood Urine Nitrite Urine Bilirubin Urine Urobilinogen Ur Leukocyte Esterase Urine Comment Adenovirus (PCR) B. pertussis DNA (PCR) B.parapertussis DNA PCR C. pneumoniae DNA (PCR) Coronavirus OC43 (PCR) Coronavirus HKU1 (PCR) Coronavirus 229E (PCR) SARS-CoV-2 (PCR) Coronavirus NL63 (PCR) Human Metapneumovir PCR Influenza Type A (PCR) Influenza Type B (PCR) M. pneumoniae (PCR) Parainfluenza 1 (PCR) Parainfluenza 2 (PCR) Parainfluenza 3 (PCR) Parainfluenza 4 (PCR) RSV (PCR) Entero/Rhino (PCR) Diagnostic Findings Chest X-Ray 04/16/25 12:01 XR chest 1V portable CLINICAL HISTORY: weakness COMPARISON STUDY: 02/28/2018 FINDINGS: Stable mild cardiomegaly without pulmonary vascular congestion. No consolidation or pleural effusion. No pneumothorax. IMPRESSION: No acute findings. ACT 112: Negative or not required by law. Electronically signed by: Hermelindo Vences M.D. 04/16/2025 12:[address] 04/16/25 12:01 CT SCAN OF THE BRAIN WITHOUT IV CONTRAST CLINICAL HISTORY: Change in mental status. COMPARISON STUDY: MRI of the brain dated 11/20/2021 TECHNIQUE: Unenhanced CT scan of the brain is performed from the vertex to the skull base. Images are reviewed in the axial, sagittal, coronal planes. A dose lowering technique was utilized adhering to the principles of ALARA. CT DOSE: 625.8 mGy.cm FINDINGS: Brain parenchyma: There is age-related involutional change noting mild subcortical and periventricular microangiopathic disease. There is no hemorrhage, mass effect, or evidence of acute territorial ischemia by CT criteria. [place]-white matter differentiation is preserved. No extra-axial fluid collection is seen. Ventricles, sulci, cisterns: Prominent secondary to involutional change. Intracranial vasculature: There is mild atherosclerotic calcification of the cavernous carotid and vertebral arteries. Calvarium: Unremarkable. Sinuses and mastoids: There is trace mucosal thickening in the right sphenoid sinus. The visualized paranasal sinuses are otherwise clear. The mastoid air cells are well pneumatized. Orbits: The bony orbits are grossly intact. IMPRESSION: There is no hemorrhage, mass effect, or evidence of acute territorial ischemia by CT criteria. ACT 112: Negative or not required by law. Electronically signed by: Winston Fowler M.D. 04/16/2025 12:49 PM Code Status & VTE Plan VTE Prophylaxis Plan VTE Prophylaxis will be ordered: Yes PG Care Time/CCT Total # of Minutes Spent Total Time Spent with Patient: Total time spent is greater than 50% in coordination of care (as documented) at patient's floor/unit and/or counseling patient: Coding Level of Care Code 12232 INT INP/OBS CARE 2/55MIN Diagnoses Acute dehydration E86.0 Generalized weakness R53.1 Atrial fibrillation with rapid ventricular response I48.91 Trigeminal autonomic cephalgias G44.099 Vitamin D deficiency E55.9 Prediabetes R73.03 Canales's esophagus K22.70 Elevated PSA R97.20
[2025-04-16] MEDS ORDERED: ONDANSETRON INJ 2 MG/ML 2 ML VIAL IV PRN (16:21)
[2025-04-16] MEDS ORDERED: POLYETHYLENE (MIRALAX) 17 GM PACK PO PRN (16:21)
[2025-04-16] MEDS ORDERED: MELATONIN 3 MG TAB PO PRN (16:21)
[2025-04-16] MEDS: TAMSULOSIN HCL 0.4 MG CAP PO SCH (20:38)
[2025-04-16] MEDS: DIVALPROEX EXTENDED RELEASE 500 MG TAB PO SCH (20:39)
[2025-04-16] MEDS: APIXABAN 5 MG TABLET PO SCH (20:39)
[2025-04-17] MEDS: ACETAMINOPHEN 325 MG TAB PO PRN (03:13)
[2025-04-17 07:24] LABS: Hematocrit (blood only) 47.6 % (42.0-52.0); Hemoglobin 16.3 g/dl (14.0-18.0); Immature Granulocytes # (auto) 0.05 K/uL (0.01-0.20); Immature Granulocytes % (auto) 0.4 %; Mean Corpuscular Hemoglobin 33.0 pg (25.0-34.0); Mean Corpuscular Volume 96.4 fL (80.0-100.0); Platelet Count 131 K/uL (130-400); RDW Standard Deviation 46.8 fL (36.4-46.3); Red Blood Count 4.94 M/uL (4.70-6.10); White Blood Count 12.49 K/ul (4.8-10.8)
[2025-04-17 07:43] LABS: Alanine Aminotransferase 8.0 U/L (7-52); Albumin Globulin Ratio 1.0 (0.9-2); Albumin Level 3.1 gm/dl (3.4-5.0); Alkaline Phosphatase 42.0 U/L (34-104); Anion Gap 4.0 (3-11); Bilirubin,Total 1.2 mg/dl (0.2-1.0); Blood Urea Nitrogen 14.0 mg/dl (6-23); Calcium 8.8 mg/dl (8.6-10.3); Carbon Dioxide 31.0 mmol/L (21-32); Chloride 104.0 mmol/L (98-107); Creatinine Clr Calc Pharmacy 81.1 ml/min; Globulin 3.1 gm/dl (2.5-4.0); Glucose 95.0 mg/dl (70-99(Fasting)); Magnesium 2.2 mg/dl (1.7-2.4); Potassium 4.0 mmol/L (3.5-5.1); Sodium 139.0 mmol/L (136-145); Total Protein 6.2 gm/dl (6.0-8.3)
[2025-04-17] MEDS: VIBEGRON 75 MG TAB PO SCH (08:17)
[2025-04-17] MEDS: CYANOCOBALAMIN (B-12) 500 MCG TABLET PO SCH (08:17)
[2025-04-17] MEDS: CHOLECALCIFEROL 25 MCG (1000 UNITS) TAB PO SCH (08:18)
[2025-04-17] MEDS: METOPROLOL SUCC 25MG EXT REL TAB PO SCH (08:18)
[2025-04-17] MEDS: FERROUS SULFATE 325 MG TAB PO SCH (08:18)
[2025-04-17] MEDS: ATORVASTATIN 20 MG TAB PO SCH (08:18)
[2025-04-17] MEDS ORDERED: TAMSULOSIN HCL 0.4 MG CAP PO SCH (09:00)
[2025-04-17] MEDS ORDERED: DIVALPROEX EXTENDED RELEASE 500 MG TAB PO SCH (09:00)
--- NOTE | 2025-04-17 13:24 | Hospitalist Progress Note ---
Date of Service April 17, 2025 Assessment & Plan (1) Acute dehydration: (2) Generalized weakness: (3) Atrial fibrillation with rapid ventricular response: (4) Trigeminal autonomic cephalgias: (5) Vitamin D deficiency: (6) Prediabetes: (7) Canales's esophagus: (8) Elevated PSA: Plan #Weakness #SIRS #enteroviral infection - multifactorial, volume depletion secondary to recent viral infection, will continue to trend inflammatory markers, no indication for antibiotics at this time. - Normal saline at 100 cc/h through the night - PT and OT assessment in the morning - clinically improving with supportive cares, white blood count decreased comp ared to yesterday, CRP modestly elevated at 13 procalcitonin negative. Will continue to follow clinically. Will continue to trend inflammatory markers. No evidence of pulmonary superinfection at this time #ketones in urine #volume depletion - fluids as above, doing well, interval improvement in heart rate but still sporadically elevated #atrial fibrillation - improving with fluid resuscitation, continue metoprolol, continue apixaban - sporadic increases over 100 but not sustained at this point. Will consider short acting IV versus oral metoprolol he may need an evening 25 mg extended release dose as well #coronary disease - no concerning symptoms for ACS, will continue to monitor with telemetry - #chronic venous stasis changes - he has an upcoming procedure planned, monitor ulceration and consult wound care #polycythemia - likely secondary to volume depletion, fluid resuscitation as noted below. Repeat a.m. labs stable #hypertension - at goal at this time, continue antihypertensives #prediabetes - A1c is 6, will check AC blood sugars with sliding scale initially #GERD #Canales's esophagus - continue Protonix #prior Lyme positive serology - will review outpatient notes, this was ordered a few weeks ago. Result just appearing no clear indication of active infection #FEN #cognitive changes - ongoing outpatient workup, CT was negative here. With any cognitive or significant short-term changes will consider MRI. This is scheduled as an outpatient #CODE STATUS - DNR/DNI per his wishes. According to his they both have advanced directives with this documented Admission and Anticipated Discharge Date Admission Date: April 16, 2025 Subjective doing okay this morning. Has not been up and walking very much yet had an episode of tachycardia last night but has mostly been in the 90s. No chest pain, no lower extremity edema. Constitutional he says he feels little bit better this morning. Has been urinating quite a bit after the fluids he received in the emergency department. No events or new concerns per nursing or patient Physical Exam Constitutional: comfortable, sitting in hospital bed, openly conversive and appropriate, no distress Eyes: sclera clear ENMT: erythematous oropharynx, no tonsillar hypertrophy or anterior adenopathy Respiratory: clear to auscultation bilaterally Cardiovascular: tachycardic, regular, no murmurs rubs or gallops Gastrointestinal (Abdomen): normal bowel sounds, nontender, nondistended Musculoskeletal: moving all extremities with no limitations or difficulty Skin: chronic venous stasis changes in the lower extremities bilaterally with no other rash or skin change Neurologic: alert and oriented x 4, although he is somewhat slowed in response to questioning. Has difficulty with recall of recent and distant events at times. Otherwise no dysmetria or dysarthria. Results & Data Results & Data Vital Signs (Past 12 Hours) Vital Signs Temp Pulse Pulse Resp BP Pulse Ox O2 Del Method 04/17/25 11:12 36.6 C 105 H 18 105/75 95 Room Air 04/17/25 08:00 Room Air 04/17/25 07:39 36.6 C 95 H 17 104/69 94 Room Air 04/17/25 03:39 36.8 C 92 H 20 108/72 93 Room Air Laboratory Results 04/17/25 04/16/25 04/16/25 06:44 20:14 13:10 WBC 12.49 H RBC 4.94 Hgb 16.3 Hct 47.6 MCV 96.4 MCH 33.0 MCHC 34.2 RDW Std Deviation 46.8 H RDW Coeff of Rafal 13.1 Plt Count 131 MPV 9.6 Immature Gran % (Auto) 0.4 Neut % (Auto) 61.4 Lymph % (Auto) 28.7 [place] % (Auto) 9.0 Eos % (Auto) 0.2 Baso % (Auto) 0.3 Neut # (Auto) 7.67 H Lymph # (Auto) 3.59 H [place] # (Auto) 1.12 H Eos # (Auto) 0.02 Baso # (Auto) 0.04 Immature Gran # (Auto) 0.05 Sodium 139 Potassium 4.0 Chloride 104 Carbon Dioxide 31 Anion Gap 4 BUN 14 Creatinine 0.89 Est Cr Clr Drug Dosing 81.1 eGFR 91.62 BUN/Creatinine Ratio 15.7 Glucose 95 POC Glucose 152 H Calcium 8.8 Magnesium 2.2 Total Bilirubin 1.2 H AST 12 L ALT 8 Alkaline Phosphatase 42 C-Reactive Protein 13.40 H Total Protein 6.2 Albumin 3.1 L Globulin 3.1 Albumin/Globulin Ratio 1.0 Procalcitonin 0.08 Urine Color Yellow Urine Appearance Clear Urine pH 7.0 Ur Specific [place] 1.014 Urine Protein Negative Urine Glucose (UA) Negative Urine Ketones Trace H Urine Blood Negative Urine Nitrite Negative Urine Bilirubin Negative Urine Urobilinogen Negative Ur Leukocyte Esterase Negative Urine Comment Adenovirus (PCR) B. pertussis DNA (PCR) B.parapertussis DNA PCR C. pneumoniae DNA (PCR) Coronavirus OC43 (PCR) Coronavirus HKU1 (PCR) Coronavirus 229E (PCR) SARS-CoV-2 (PCR) Coronavirus NL63 (PCR) Hepatitis C Ab Screen Negative Human Metapneumovir PCR Influenza Type A (PCR) Influenza Type B (PCR) M. pneumoniae (PCR) Parainfluenza 1 (PCR) Parainfluenza 2 (PCR) Parainfluenza 3 (PCR) Parainfluenza 4 (PCR) RSV (PCR) Entero/Rhino (PCR) 04/16/25 12:09 WBC RBC Hgb Hct MCV MCH MCHC RDW Std Deviation RDW Coeff of Rafal Plt Count MPV Immature Gran % (Auto) Neut % (Auto) Lymph % (Auto) [place] % (Auto) Eos % (Auto) Baso % (Auto) Neut # (Auto) Lymph # (Auto) [place] # (Auto) Eos # (Auto) Baso # (Auto) Immature Gran # (Auto) Sodium Potassium Chloride Carbon Dioxide Anion Gap BUN Creatinine Est Cr Clr Drug Dosing eGFR BUN/Creatinine Ratio Glucose POC Glucose Calcium Magnesium Total Bilirubin AST ALT Alkaline Phosphatase C-Reactive Protein Total Protein Albumin Globulin Albumin/Globulin Ratio Procalcitonin Urine Color Urine Appearance Urine pH Ur Specific [place] Urine Protein Urine Glucose (UA) Urine Ketones Urine Blood Urine Nitrite Urine Bilirubin Urine Urobilinogen Ur Leukocyte Esterase Urine Comment Adenovirus (PCR) Not Detected B. pertussis DNA (PCR) Not Detected B.parapertussis DNA PCR Not Detected C. pneumoniae DNA (PCR) Not Detected Coronavirus OC43 (PCR) Not Detected Coronavirus HKU1 (PCR) Not Detected Coronavirus 229E (PCR) Not Detected SARS-CoV-2 (PCR) Not Detected Coronavirus NL63 (PCR) Not Detected Hepatitis C Ab Screen Human Metapneumovir PCR Not Detected Influenza Type A (PCR) Not Detected Influenza Type B (PCR) Not Detected M. pneumoniae (PCR) Not Detected Parainfluenza 1 (PCR) Not Detected Parainfluenza 2 (PCR) Not Detected Parainfluenza 3 (PCR) Not Detected Parainfluenza 4 (PCR) Not Detected RSV (PCR) Not Detected Entero/Rhino (PCR) DETECTED A PG Care Time/CCT Total # of Minutes Spent Total Time Spent with Patient: Total time spent is greater than 50% in coordination of care (as documented) at patient's floor/unit and/or counseling patient: Coding Level of Care Code 67908 SUB INP/OBS CARE 2/35MIN Diagnoses Acute dehydration E86.0 Generalized weakness R53.1 Atrial fibrillation with rapid ventricular response I48.91 Trigeminal autonomic cephalgias G44.099 Vitamin D deficiency E55.9 Prediabetes R73.03 Canales's esophagus K22.70 Elevated PSA R97.20
[2025-04-18 03:48] VITALS: TEMP 98.2
[2025-04-18 07:23] LABS: Hematocrit (blood only) 46.5 % (42.0-52.0); Hemoglobin 15.6 g/dl (14.0-18.0); Immature Granulocytes # (auto) 0.03 K/uL (0.01-0.20); Immature Granulocytes % (auto) 0.3 %; Mean Corpuscular Hemoglobin 31.8 pg (25.0-34.0); Mean Corpuscular Volume 94.9 fL (80.0-100.0); Platelet Count 134 K/uL (130-400); RDW Standard Deviation 45.7 fL (36.4-46.3); Red Blood Count 4.90 M/uL (4.70-6.10); White Blood Count 10.13 K/ul (4.8-10.8)
[2025-04-18 07:41] LABS: Anion Gap 8.0 (3-11); Blood Urea Nitrogen 21.0 mg/dl (6-23); Calcium 8.6 mg/dl (8.6-10.3); Carbon Dioxide 26.0 mmol/L (21-32); Chloride 104.0 mmol/L (98-107); Creatinine Clr Calc Pharmacy 84.9 ml/min; Glucose 96.0 mg/dl (70-99(Fasting)); Magnesium 2.0 mg/dl (1.7-2.4); Potassium 3.7 mmol/L (3.5-5.1); Sodium 138.0 mmol/L (136-145)
[2025-04-18 08:34] VITALS: RESP 18; O2SAT 96
--- NOTE | 2025-04-18 13:03 | Discharge Summary ---
Discharge Summary Date of Service April 18, 2025 Principal Dx & Hospital Course #1 = Principal Diagnosis (1) Acute dehydration: (2) Generalized weakness: (3) Atrial fibrillation with rapid ventricular response: (4) Trigeminal autonomic cephalgias: (5) Vitamin D deficiency: (6) Prediabetes: (7) Canales's esophagus: (8) Elevated PSA: Plan #Weakness #SIRS #enteroviral infection - multifactorial, volume depletion secondary to recent viral infection, will continue to trend inflammatory markers, no indication for antibiotics at this time. - Normal saline at 100 cc/h through the night - PT and OT assessment in the morning - clinically improving with supportive cares, white blood count decreased compared to yesterday, CRP modestly elevated at 13 procalcitonin negative. Will continue to follow clinically. Will continue to trend inflammatory markers. No evidence of pulmonary superinfection at this time - by hospital day 2 with rehydration and supportive cares he was back close to his baseline. No indication for antibiotics or further treatment evaluation #ketones in urine #volume depletion - fluids as above, doing well, interval improvement in heart rate but still sporadically elevated - responded well to volume expansion #atrial fibrillation - improving with fluid resuscitation, continue metoprolol, continue apixaban - sporadic increases over 100 but not sustained at this point. Will consider short acting IV versus oral metoprolol he may need an evening 25 mg extended release dose as well - after fluid resuscitation he did have some sustained heart rates in the 140- 150 range overnight. Added a 25 mg at bedtime dose of metoprolol so 25 mg metoprolol succinate twice daily on discharge - will have him follow-up in the primary clinic, will forward discharge summary to cardiology for long-term management #coronary disease - no concerning symptoms for ACS, will continue to monitor with telemetry - stable no further evaluation during this hospital stay #chronic venous stasis changes - he has an upcoming procedure planned, monitor ulceration and consult wound care #polycythemia - likely secondary to volume depletion, fluid resuscitation as noted below. Repeat a.m. labs stable - normalized by the time of discharge #hypertension - at goal at this time, continue antihypertensives #prediabetes - A1c is 6, will check AC blood sugars with sliding scale initially #GERD #Canales's esophagus - continue Protonix #prior Lyme positive serology - will review outpatient notes, this was ordered a few weeks ago. Result just appearing no clear indication of active infection #FEN #cognitive changes - ongoing outpatient workup, CT was negative here. With any cognitive or signi ficant short-term changes will consider MRI. This is scheduled as an outpatient Admission HPI Per Admitting Provider 69-year-old male history of atrial fibrillation, known coronary disease, chronic venous stasis with ulcerations, trigeminal autonomic cephalgia, migraine, hypertension, hypercholesterolemia, GERD with Canales's esophagus, elevated PSA, vitamin B12 deficiency presents to the emergency department with a 2-day history of upper head cold congestion, sore throat and now with diarrhea. Predominant presenting complaint was the overall weakness. Denies any dizziness orthostasis PND. No worsening lower extremity edema. Initial evaluation in the emergency department showed elevated hemoglobin, clinical signs of dehydration, likely volume depletion with mild tachycardia. Concern for sepsis. BioFire revealed enterovirus positive. Secondary to his weakness, tachycardia and minimal improvement with symptoms he referred for admission for further resuscitation, evaluation and supportive cares Discharge Exam Constitutional WD/WN, vitals as above Eyes PERRL, conjunctivae normal, anicteric sclerae Respiratory normal respiratory effort, lungs clear to auscultation Cardiovascular RRR, no murmur, no edema Musculoskeletal no cyanosis or clubbing, extremities motor strength 5/5 Skin no rashes, warm and dry Neurologic at baseline, no focal change Discharge Plan Discharge Items Patient Disposition: Home - Self-Care Reason For Visit: weakness Discharge Diagnosis: Viral SIRS/Enteritis Condition on Discharge: Fair Health Concerns: - Your metoprolol was increased from 25 mg in the morning to 25 mg in the morning and 25 mg at nighttime. Please follow-up with your primary doctor in 1 to 2 weeks to discuss this change and decide whether to continue over the long- term Activity: Resume your previous activity Non-emergency contact: Primary Care Provider Call non-emergency contact if: you have any medication questions, your symptoms worsen and you have a fever Follow-up/Referrals: Lisa Browning MD [Primary Care Provider] - Rob Joiner MD [Physician] - Diet: Heart Healthy Addtl Attending Provider Instructions: metoprolol was increased to 25 mg twice daily for nighttime sustained mild tachycardia, please follow closely as an outpatient Pending Studies at Discharge: No Stand-Alone Forms: My [employer], Smoking Cessation Medications and DC Order Prescriptions: New metoprolol succinate 25 mg Tablet Extended Release 24 Hr 25 mg PO BID Qty: 30 0RF Continued cholecalciferol (vitamin D3) 50 mcg (2,000 unit) capsule 50 mcg PO DAILY Qty: 30 8RF Patient Comments: 04/16- otc unable to verify ferrous sulfate 325 mg (65 mg iron) tablet 325 mg PO DAILY Qty: 30 8RF Patient Comments: 04/16- otc unable to verify sildenafil 50 mg tablet 50 mg PO DAILY PRN (Reason: sexual activity) Qty: 30 3RF Patient Comments: 04/16- no fill history unable to verify Rx Instructions: administer 30 minutes to 4 hours before activity tamsulosin 0.4 mg capsule 0.4 mg PO DAILY Qty: 90 3RF apixaban 5 mg tablet 5 mg PO BID Qty: 180 3RF Gemtesa 75 mg tablet 75 mg PO DAILY Qty: 90 3RF atorvastatin 20 mg tablet 20 mg PO DAILY Qty: 90 3RF omeprazole 40 mg capsule,delayed release(DR/EC) 40 mg PO BID Qty: 180 3RF cyanocobalamin (vitamin B-12) 2,500 mcg tablet 2,500 mcg PO DAILY Qty: 30 8RF Patient Comments: 04/16- otc unable to verify divalproex 500 mg tablet extended release 24 hr 1,000 mg PO DAILY Qty: 60 5RF rizatriptan 10 mg tablet,disintegrating 10 mg PO Q2H PRN (Reason: migraine headache) Qty: 12 5RF Rx Instructions: do not exceed 3 doses per 24 hrs triamcinolone acetonide 0.1 % ointment 0 applic topical BID Patient Comments: last filled 03/08 7 day supply lisinopril 5 mg tablet 0 mg PO DAILY PRN (Reason: elevated blood pressure ) Patient Comments: 04/16- no fill history unable to verify Discontinued metoprolol succinate 25 mg tablet extended release 24 hr 50 mg PO DAILY Discharge Orders: Discharge Order (Routine); Ordered 04/18/25 Ordered By: Rao Manuel/Other Patient Handouts: Enteroviruses in Children Admission Data Admit Date/Time: 04/16/25 15:09 Attending Provider: Rao Ruiz Admit Provider: Rao Ruiz Primary Care Provider: Lisa Browning Other Providers: Rao Ruiz Hospital Stay Data Consultations 04/16/25 14:30 ED Decision to Admit Stat Diagnostic Imagining Performed 04/16/25 12:01 CT head/brain wo con Stat Pending Results Patient Have Any Pending Studies at Discharge: No Discharge Instructions Given to Patient (Per Discharging Provider) metoprolol was increased to 25 mg twice daily for nighttime sustained mild tachycardia, please follow closely as an outpatient Total Time Total Time Spent Total Time Spent (In Minutes): 25 minutes spent coordinating medication changes, discussing results and follow-up care plan Coding Level of Care Code 64110 IN/OBS DISCH 30 MIN/LESS Diagnoses Acute dehydration E86.0 Generalized weakness R53.1 Atrial fibrillation with rapid ventricular response I48.91 Trigeminal autonomic cephalgias G44.099 Vitamin D deficiency E55.9 Prediabetes R73.03 Canales's esophagus K22.70 Elevated PSA R97.20
[2025-04-18 13:47] VITALS: BP 101/73
[2025-04-18 14:08] VITALS: PULSE 85
[2025-04-18] MEDS ORDERED: METOPROLOL SUCC 25MG EXT REL TAB PO SCH (21:00)
== END 2025-04-18 14:23 | disposition home or self-care (01) | DRG 866 ==
LOC: SUATTDRO → ED 11:57 → 2W 15:09

== ENCOUNTER 2025-04-19 15:48 | Observation (INO) ==
--- NOTE | 2025-04-19 16:12 | XRay Report ---
XR chest 1V portable CLINICAL HISTORY: Chest pain, nonspecific COMPARISON STUDY: 04/16/2025 FINDINGS: There is an interval small area of dense consolidation at the lateral right mid lung. No ot her consolidation or pleural effusion seen. No pneumothorax. IMPRESSION: Acute pneumonia right mid lung. ACT 112: Negative or not required by law. Electronically signed by: Hermelindo Vences M.D. 04/19/2025 4:11 PM
[2025-04-19 16:20] LABS: Hematocrit (blood only) 47.7 % (42.0-52.0); Hemoglobin 16.3 g/dl (14.0-18.0); Immature Granulocytes # (auto) 0.02 K/uL (0.01-0.20); Immature Granulocytes % (auto) 0.2 %; Mean Corpuscular Hemoglobin 32.3 pg (25.0-34.0); Mean Corpuscular Volume 94.6 fL (80.0-100.0); Platelet Count 162 K/uL (130-400); RDW Standard Deviation 44.8 fL (36.4-46.3); Red Blood Count 5.04 M/uL (4.70-6.10); White Blood Count 11.39 K/ul (4.8-10.8)
--- NOTE | 2025-04-19 16:32 | Emergency Department Note ---
Impression & Plan Atrial fibrillation with rapid ventricular response, Acute confusion, Pneumonia ED Provider Note HISTORY OF PRESENT ILLNESS: Patient is a 69-year-old male presenting with chest pain. Patient reports that he was at the park playing with his grandson when he suddenly developed pain in the substernal and right side of his chest. He states the pain is sharp in nature and is worse when he tries to take a deep breath. He has a history of A- fib and is on Eliquis. Denies any missed doses of the Eliquis. Pain started around 1230 and has been persistent ever since. He reports it is very uncomfortable when he tries to take a deep breath. He states has never had pain like this before. Denies any DVT or PE history. Denies any recent fevers. He denies any significant shortness of breath. He was recently admitted and discharged from the hospital yesterday. Denies any history of cardiac stents. Patient currently rates his pain an 8 out of 10. Patient was given IV fentanyl prehospital with EMS. at bedside does report the patient has been more confused over the last few days. ROS: as above PHYSICAL EXAM: Constitutional: Patient appears in no acute distress. HENT: Head: Normocephalic and atraumatic. Eyes: EOMI, PERRL Mouth/Throat: Mucous membranes moist. Neck: Trachea midline. Neck supple. Cardiovascular: Tachycardic with irregularly irregular rhythm. No murmurs, rubs or gallops. Intact distal pulses. Pulmonary/Chest: No respiratory distress. Breath sounds clear and equal bilaterally. No wheezes or rales. Abdominal: Abdomen soft, no tenderness, rebound or guarding. Musculoskeletal: No edema, tenderness or deformity noted. Skin: Warm and dry. No rash, erythema, pallor or cyanosis Psychiatric: Appropriate mood and affect for situation. Neurological: Alert and keenly responsive. CN II-XII grossly intact, moving all extremities equally and fully. MDM: - Vitals signs showed tach - History obtained via patient. History as above. - Chronic conditions affecting care: Afib; HTN; HLD - Differential diagnoses include, but are not limited to: Acute coronary syndrome; pulmonary embolism; dissection; tension pneumothorax; esophageal rupture; pneumonia - Order placed for continuous cardiac monitoring. At this time, monitor showed rate of 121 bpm with irregular rhythm, per my interpretation. - External medical records reviewed. Discharge summary dated 04/18/2025 was reviewed. Patient was admitted that time for acute dehydration and weakness. He was found to have an enteroviral infection. He was also noted to have A-fib with RVR which improved with fluid resuscitation. - EKG image obtained at 1555 interpreted by myself showed atrial fibrillation. Rate tachycardic at 121 bpm. QT 330. No acute ischemic changes. - Laboratory workup interpreted by myself showed leukocytosis (WBC 11.39); normal lactate; stable electrolytes; elevated total bilirubin (1.5); normal AST/ALT; normal procalcitonin; normal troponin - Blood cultures obtained - CXR image reviewed and interpreted myself as any for pneumonia, per my interpretation. - CT head wo contrast negative for acute pathology - CT PE negative for PE but noted to have a prominent right upper lung opacity concerning for pneumonia. - Patient given 4 mg IV morphine and 4 mg IV Zofran on arrival to the ER. He was given 324 mg of aspirin. Given 500 cc of fluid and 5 mg IV Lopressor with some improvement in his heart rate. He was given 2 g of IV Rocephin and 500 mg oral azithromycin for antibiotic therapy for his pneumonia. - UA ordered - Discussion was had with case packer about patient's case and need for admission - Hospitalist consulted for admission - Patient admitted to [facility] service for further evaluation and management. ASSESSMENT AND PLAN: Diagnosis: A-fib with RVR; acute confusion; pneumonia Plan: Admit Past Med/Surg History Problem List (Updated 04/19/25 @ 19:08 by Daniela Martinez MD) Pneumonia (Acute) Acute confusion (Acute) Atrial fibrillation with rapid ventricular response (Acute) Acute dehydration (Acute) Generalized weakness (Acute) Atrial fibrillation with rapid ventricular response (Acute) Trigeminal autonomic cephalgias Bursitis of right hip Erectile dysfunction Atrial fibrillation (~01/20/23) Vitamin D deficiency Prediabetes Hypercholesteremia Hypertension GERD (gastroesophageal reflux disease) Canales's esophagus Arthritis Elevated PSA Migraine headache without aura Vitamin B12 deficiency BPH NOS w ur obs/LUTS Surgical History History of surgery vein surgery History of colonoscopy Hx of endoscopy H/O knee surgery History of appendectomy Family History Brother Esophageal cancer Heart disease Other Diabetes Denies family history of Ovarian cancer Prostate cancer Myocardial infarction Breast cancer Colorectal cancer Social History Smoking Status: Former smoker Tobacco Type: Declines Age Started Using Tobacco: 18; Age Quit Using Tobacco: 33; Second Hand Exposure: No; Do You Dip or Chew Tobacco: No; Hx Alcohol Use: No Hx Substance Use: No Preferred Language: Ethiopian Communication Ability: Effective Visual Impairment: Partially Limited Hearing Ability: Normal Agents' Records Clerk Required: No Beliefs That Will Affect Care: None marital status: Current Living Situation: Spouse Current Living Situation Comment: current occupational status: retired How many Children do You have: 3 Feels Safe at Home: Yes Childhood Exposure to Second-Hand Smoke: Yes Diet: regular caffeine: Yes during the past year weight has: remained stable Dental Care, Regularly: Yes Physical Activity Frequency: 5-6 Times per Week Seatbelt Use: always Sunscreen Use: Yes Gender Identity: Male Assistive Devices: Cane and Walker Allergies Allergies Allergy/AdvReac Type Severity Reaction Status Date / Time No Known Allergies Allergy Verified 04/19/25 17:54 Home Meds Home Medications Medication Instructions Recorded Confirmed lisinopril 5 mg tablet 5 mg PO DAILY PRN elevated blood 04/16/25 04/19/25 pressure triamcinolone acetonide 0.1 % 1 applic topical BID PRN NEEDED 04/16/25 04/19/25 topical ointment Previous Rx's Medication Instructions Recorded cyanocobalamin (vitamin B-12) 2,500 mcg PO DAILY #30 tabs 12/08/21 2,500 mcg tablet cholecalciferol (vitamin D3) 50 50 mcg PO DAILY #30 caps 04/01/22 mcg (2,000 unit) capsule ferrous sulfate 325 mg (65 mg 325 mg PO DAILY #30 tabs 04/01/22 iron) tablet sildenafil 50 mg tablet 50 mg PO DAILY PRN sexual activity 03/08/24 #30 tabs apixaban 5 mg tablet 5 mg PO BID #180 tabs 01/01/25 vibegron 75 mg tablet (Gemtesa) 75 mg PO DAILY #90 tabs 01/03/25 divalproex 500 mg tablet,extended 1,000 mg (2 x 500 mg) PO DAILY #60 02/20/25 release 24 hr tabs rizatriptan 10 mg disintegrating 10 mg PO Q2H PRN migraine headache 02/20/25 tablet #12 tabs atorvastatin 20 mg tablet 20 mg PO DAILY #90 tabs 02/22/25 omeprazole 40 mg capsule,delayed 40 mg PO BID #180 caps 03/26/25 release metoprolol succinate 25 mg 25 mg PO BID #30 tabs 04/18/25 tablet,extended release 24 hr tamsulosin 0.4 mg capsule 0.4 mg PO DAILY #90 caps 04/19/25 Results & Data (ED) Vital Signs Vital Signs - 24 hr 04/19/25 16:00 04/19/25 16:00 04/19/25 16:02 Temperature 36.8 C Temperature Source Oral Pulse Rate 123 H Pulse Rate [Right Finger] Pulse Rate from SpO2 Sensor Respiratory Rate 20 Blood Pressure 109/75 109/75 109/75 Blood Pressure [Right Arm] Blood Pressure Mean 80 80 86 Blood Pressure Mean [Right Arm] Pulse Oximetry 93 Oxygen Delivery Method Room Air Sepsis Recent Fever Within 48 Hours No Sepsis New/Unexplained Change in Mental Status N/A Sepsis Action Taken by Nursing No Action Required 04/19/25 16:02 04/19/25 16:02 04/19/25 16:02 Temperature 36.8 C Temperature Source Oral Pulse Rate 123 H Pulse Rate [Right Finger] 123 H Pulse Rate from SpO2 Sensor Respiratory Rate 20 20 Blood Pressure Blood Pressure [Right Arm] 109/75 Blood Pressure Mean Blood Pressure Mean [Right Arm] 86 Pulse Oximetry 93 93 93 Oxygen Delivery Method Room Air Room Air Room Air Sepsis Recent Fever Within 48 Hours Sepsis New/Unexplained Change in Mental Status Sepsis Action Taken by Nursing 04/19/25 16:03 04/19/25 16:18 04/19/25 16:24 Temperature Temperature Source Pulse Rate 120 H 120 H 132 H Pulse Rate [Right Finger] Pulse Rate from SpO2 Sensor 105 H 116 H Respiratory Rate 23 23 Blood Pressure Blood Pressure [Right Arm] Blood Pressure Mean Blood Pressure Mean [Right Arm] Pulse Oximetry 93 94 Oxygen Delivery Method Sepsis Recent Fever Within 48 Hours Sepsis New/Unexplained Change in Mental Status Sepsis Action Taken by Nursing 04/19/25 16:39 04/19/25 16:42 04/19/25 17:04 Temperature Temperature Source Pulse Rate 116 H 103 H Pulse Rate [Right Finger] Pulse Rate from SpO2 Sensor 103 H 105 H Respiratory Rate 29 H 15 Blood Pressure 108/91 Blood Pressure [Right Arm] Blood Pressure Mean 101 Blood Pressure Mean [Right Arm] Pulse Oximetry 94 93 Oxygen Delivery Method Sepsis Recent Fever Within 48 Hours Sepsis New/Unexplained Change in Mental Status Sepsis Action Taken by Nursing 04/19/25 17:04 04/19/25 17:06 04/19/25 17:15 Temperature Temperature Source Pulse Rate 107 H 99 H Pulse Rate [Right Finger] Pulse Rate from SpO2 Sensor 106 H 86 Respiratory Rate 29 H 19 Blood Pressure 108/91 Blood Pressure [Right Arm] Blood Pressure Mean 101 Blood Pressure Mean [Right Arm] Pulse Oximetry 91 92 Oxygen Delivery Method Sepsis Recent Fever Within 48 Hours Sepsis New/Unexplained Change in Mental Status Sepsis Action Taken by Nursing 04/19/25 17:17 04/19/25 17:22 04/19/25 17:22 Temperature Temperature Source Pulse Rate 107 H Pulse Rate [Right Finger] Pulse Rate from SpO2 Sensor Respiratory Rate Blood Pressure 108/91 124/89 124/89 Blood Pressure [Right Arm] Blood Pressure Mean 97 97 Blood Pressure Mean [Right Arm] Pulse Oximetry Oxygen Delivery Method Sepsis Recent Fever Within 48 Hours Sepsis New/Unexplained Change in Mental Status Sepsis Action Taken by Nursing 04/19/25 17:22 04/19/25 17:24 04/19/25 17:30 Temperature Temperature Source Pulse Rate 90 Pulse Rate [Right Finger] Pulse Rate from SpO2 Sensor 100 H Respiratory Rate 20 Blood Pressure 124/89 121/92 Blood Pressure [Right Arm] Blood Pressure Mean 97 97 Blood Pressure Mean [Right Arm] Pulse Oximetry 92 Oxygen Delivery Method Sepsis Recent Fever Within 48 Hours Sepsis New/Unexplained Change in Mental Status Sepsis Action Taken by Nursing 04/19/25 17:30 04/19/25 17:33 04/19/25 17:48 Temperature Temperature Source Pulse Rate 107 H 91 H Pulse Rate [Right Finger] Pulse Rate from SpO2 Sensor 95 H 92 H Respiratory Rate 23 21 Blood Pressure 121/92 Blood Pressure [Right Arm] Blood Pressure Mean 97 Blood Pressure Mean [Right Arm] Pulse Oximetry 92 95 Oxygen Delivery Method Sepsis Recent Fever Within 48 Hours Sepsis New/Unexplained Change in Mental Status Sepsis Action Taken by Nursing 04/19/25 18:00 04/19/25 18:00 04/19/25 18:06 Temperature Temperature Source Pulse Rate 83 Pulse Rate [Right Finger] Pulse Rate from SpO2 Sensor 96 H Respiratory Rate 22 Blood Pressure 107/93 107/93 Blood Pressure [Right Arm] Blood Pressure Mean 97 97 Blood Pressure Mean [Right Arm] Pulse Oximetry 94 Oxygen Delivery Method Sepsis Recent Fever Within 48 Hours Sepsis New/Unexplained Change in Mental Status Sepsis Action Taken by Nursing 04/19/25 18:15 04/19/25 18:18 04/19/25 18:30 Temperature Temperature Source Pulse Rate 83 98 H Pulse Rate [Right Finger] Pulse Rate from SpO2 Sensor 86 84 Respiratory Rate 20 20 Blood Pressure 125/92 Blood Pressure [Right Arm] Blood Pressure Mean 97 Blood Pressure Mean [Right Arm] Pulse Oximetry 90 92 Oxygen Delivery Method Sepsis Recent Fever Within 48 Hours Sepsis New/Unexplained Change in Mental Status Sepsis Action Taken by Nursing 04/19/25 18:30 04/19/25 18:36 04/19/25 18:39 Temperature Temperature Source Pulse Rate 90 91 H Pulse Rate [Right Finger] Pulse Rate from SpO2 Sensor Respiratory Rate 31 H Blood Pressure 125/92 127/86 Blood Pressure [Right Arm] Blood Pressure Mean 97 Blood Pressure Mean [Right Arm] Pulse Oximetry Oxygen Delivery Method Sepsis Recent Fever Within 48 Hours Sepsis New/Unexplained Change in Mental Status Sepsis Action Taken by Nursing 04/19/25 18:42 Temperature Temperature Source Pulse Rate 87 Pulse Rate [Right Finger] Pulse Rate from SpO2 Sensor Respiratory Rate 18 Blood Pressure Blood Pressure [Right Arm] Blood Pressure Mean Blood Pressure Mean [Right Arm] Pulse Oximetry Oxygen Delivery Method Sepsis Recent Fever Within 48 Hours Sepsis New/Unexplained Change in Mental Status Sepsis Action Taken by Nursing Laboratory Data 04/19/25 16:00 04/19/25 16:00 Lab Results 04/19/25 04/19/25 04/19/25 Range/Units 16:00 16:04 18:01 WBC 11.39 H (4.8-10.8) K/ul RBC 5.04 (4.70-6.10) M/uL Hgb 16.3 (14.0-18.0) g/dl POC Hgb 16.7 (14.0-18.0) g/dl Hct 47.7 (42.0-52.0) % POC Hct 49 (42-52) % MCV 94.6 (80.0-100.0) fL MCH 32.3 (25.0-34.0) pg MCHC 34.2 (32.0-36.0) g/dL RDW Std Deviation 44.8 (36.4-46.3) fL RDW Coeff of Rafal 12.9 (11.5-14.5) % Plt Count 162 (130-400) K/uL MPV 9.8 (9.4-12.4) fL Immature Gran % (Auto) 0.2 % Neut % (Auto) 71.9 % Lymph % (Auto) 16.4 % [place] % (Auto) 11.2 % Eos % (Auto) 0.0 % Baso % (Auto) 0.3 % Neut # (Auto) 8.19 H (1.40-6.50) K/uL Lymph # (Auto) 1.87 (1.20-3.40) K/uL [place] # (Auto) 1.28 H (0.11-0.59) K/uL Eos # (Auto) 0.00 (0.00-0.50) K/uL Baso # (Auto) 0.03 (0.00-0.20) K/uL Immature Gran # (Auto) 0.02 (0.01-0.20) K/uL POC Sodium 136 (135-144) mmol/L Sodium 133 L (136-145) mmol/L POC Potassium 3.9 (3.3-5.0) mmol/L Potassium 3.9 (3.5-5.1) mmol/L POC Chloride 102 (101-112) mmol/L Chloride 100 (98-107) mmol/L Carbon Dioxide 23 (21-32) mmol/L POC Total CO2 22 L (24-31) mmol/L Anion Gap 10 (3-11) POC Anion Gap 16.0 (16-25) mmol/L POC BUN 20 H (7-18) mg/dl BUN 19 (6-23) mg/dl Creatinine 0.79 (0.6-1.4) mg/dl POC Creatinine 0.9 (0.6-1.3) mg/dl Est Cr Clr Drug Dosing 88.6 ml/min eGFR 94.98 BUN/Creatinine Ratio 24.1 H (10-20) Glucose 111 H (70-99(Fasting)) mg/dl POC Glucose (other) 111 H (70-99) mg/dl Lactate (0.4-2.0) mmol/L Calcium 9.1 (8.6-10.3) mg/dl POC Ioniz Calcium Mara 1.05 L (1.12-1.32) mmol/l Magnesium 1.9 (1.7-2.4) mg/dl Total Bilirubin 1.5 H (0.2-1.0) mg/dl AST 22 (13-39) U/L ALT 23 (7-52) U/L Alkaline Phosphatase 54 (34-104) U/L Troponin I High Sens 4.5 (0-20) pg/ml Total Protein 7.2 (6.0-8.3) gm/dl Albumin 3.6 (3.4-5.0) gm/dl Globulin 3.6 (2.5-4.0) gm/dl Albumin/Globulin Ratio 1.0 (0.9-2) Lipase 8 L (11-82) U/L Procalcitonin 0.05 (0-0.5) ng/ml Urine Color Dark Yellow Urine Appearance Clear (Clear) Urine pH 5.5 (4.5-7.5) Ur Specific [place] 1.010 (1.000-1.030) Urine Protein Trace H (Negative) Urine Glucose (UA) Negative (Negative) Urine Ketones 2+ H (Negative) Urine Blood Trace-intact H (Negative) Urine Nitrite Negative (Negative) Urine Bilirubin 1+ H (Negative) Urine Urobilinogen Positive H (Negative) Ur Leukocyte Esterase Negative (Negative) Urine WBC (Auto) 0-5 (0-5) /hpf Urine RBC (Auto) 3-5 H (0-2) /hpf U Hyaline Cast (Auto) 0-2 (0-2) /lpf U Epithel Cells (Auto) 0-2 (0-2) /hpf Urine Bacteria (Auto) None Seen (None Seen) Urine Comment 04/19/25 Range/Units 18:03 WBC (4.8-10.8) K/ul RBC (4.70-6.10) M/uL Hgb (14.0-18.0) g/dl POC Hgb (14.0-18.0) g/dl Hct (42.0-52.0) % POC Hct (42-52) % MCV (80.0-100.0) fL MCH (25.0-34.0) pg MCHC (32.0-36.0) g/dL RDW Std Deviation (36.4-46.3) fL RDW Coeff of [place] (11.5-14.5) % Plt Count (130-400) K/uL MPV (9.4-12.4) fL Immature Gran % (Auto) % Neut % (Auto) % Lymph % (Auto) % [place] % (Auto) % Eos % (Auto) % Baso % (Auto) % Neut # (Auto) (1.40-6.50) K/uL Lymph # (Auto) (1.20-3.40) K/uL [place] # (Auto) (0.11-0.59) K/uL Eos # (Auto) (0.00-0.50) K/uL Baso # (Auto) (0.00-0.20) K/uL Immature Gran # (Auto) (0.01-0.20) K/uL POC Sodium (135-144) mmol/L Sodium (136-145) mmol/L POC Potassium (3.3-5.0) mmol/L Potassium (3.5-5.1) mmol/L POC Chloride (101-112) mmol/L Chloride (98-107) mmol/L Carbon Dioxide (21-32) mmol/L POC Total CO2 (24-31) mmol/L Anion Gap (3-11) POC Anion Gap (16-25) mmol/L POC BUN (7-18) mg/dl BUN (6-23) mg/dl Creatinine (0.6-1.4) mg/dl POC Creatinine (0.6-1.3) mg/dl Est Cr Clr Drug Dosing ml/min eGFR BUN/Creatinine Ratio (10-20) Glucose (70-99(Fasting)) mg/dl POC Glucose (other) (70-99) mg/dl Lactate 1.0 (0.4-2.0) mmol/L Calcium (8.6-10.3) mg/dl POC Ioniz Calcium Mara (1.12-1.32) mmol/l Magnesium (1.7-2.4) mg/dl Total Bilirubin (0.2-1.0) mg/dl AST (13-39) U/L ALT (7-52) U/L Alkaline Phosphatase (34-104) U/L Troponin I High Sens (0-20) pg/ml Total Protein (6.0-8.3) gm/dl Albumin (3.4-5.0) gm/dl Globulin (2.5-4.0) gm/dl Albumin/Globulin Ratio (0.9-2) Lipase (11-82) U/L Procalcitonin (0-0.5) ng/ml Urine Color Urine Appearance (Clear) Urine pH (4.5-7.5) Ur Specific [place] (1.000-1.030) Urine Protein (Negative) Urine Glucose (UA) (Negative) Urine Ketones (Negative) Urine Blood (Negative) Urine Nitrite (Negative) Urine Bilirubin (Negative) Urine Urobilinogen (Negative) Ur Leukocyte Esterase (Negative) Urine WBC (Auto) (0-5) /hpf Urine RBC (Auto) (0-2) /hpf U Hyaline Cast (Auto) (0-2) /lpf U Epithel Cells (Auto) (0-2) /hpf Urine Bacteria (Auto) (None Seen) Urine Comment Administered Medications Divalproex Sodium (Divalproex Extended Release 500 Mg Tab) 1,000 mg PO DAILY NELI Stop: 05/19/25 18:29 Last Admin: 04/19/25 18:56 Dose: 1,000 mg Documented By: harjit Discontinued Medications Aspirin (Aspirin Chew 324 Mg) 324 mg PO NOW STA Stop: 04/19/25 16:31 Last Admin: 04/19/25 16:41 Dose: 324 mg Documented By: harjit Azithromycin (Azithromycin 250 Mg Tab) 500 mg PO NOW ONE Stop: 04/19/25 17:38 Last Admin: 04/19/25 18:20 Dose: 500 mg Documented By: harjit Sodium Chloride (Nss) 500 mls @ 999 mls/hr IV .Q31M ONE Stop: 04/19/25 17:16 Last Infusion: 04/19/25 17:56 Dose: Infused Documented By: harjit Admin: 04/19/25 17:17 Dose: 999 mls/hr Documented By: harjit Ceftriaxone Sodium (Rocephin) 2,000 mg in 50 mls @ 100 mls/hr IV NOW STA Stop: 04/19/25 18:06 Last Admin: 04/19/25 18:21 Dose: 100 mls/hr Documented By: harjit Ioversol (Optiray 320 125ml) 119 ml IV ONCE ONE Stop: 04/19/25 16:57 Last Admin: 04/19/25 16:56 Dose: 119 ml Documented By: BROWN Metoprolol Tartrate (Metoprolol Tartrate 1 Mg/Ml Vial) 5 mg IV NOW STA Stop: 04/19/25 16:47 Last Admin: 04/19/25 17:17 Dose: 5 mg Documented By: harjit Morphine Sulfate (Morphine Sulfate 4 Mg/Ml 1 Ml Carp\Vial) 4 mg IV NOW STA Stop: 04/19/25 16:31 Last Admin: 04/19/25 16:41 Dose: 4 mg Documented By: harjit Ondansetron HCl (Ondansetron Inj 2 Mg/Ml 2 Ml Vial) 4 mg IV NOW STA Stop: 04/19/25 16:31 Last Admin: 04/19/25 16:41 Dose: 4 mg Documented By: harjit Imaging Data Radiologist's Impression: Chest X-Ray 04/19/25 15:55 XR chest 1V portable CLINICAL HISTORY: Chest pain, nonspecific COMPARISON STUDY: 04/16/2025 FINDINGS: There is an interval small area of dense consolidation at the lateral right mid lung. No other consolidation or pleural effusion seen. No pneumothorax. IMPRESSION: Acute pneumonia right mid lung. ACT 112: Negative or not required by law. Electronically signed by: Hermelindo Vences M.D. 04/19/2025 4:11 PM Chest CTA 04/19/25 16:30 CT pulmonary angiogram with IV contrast History: Chest pain COMPARISON: None TECHNIQUE: CT angiography of the chest was performed without IV contrast followed by IV contrast, including 3D post processing CTA image reconstruction. Dose reduction techniques were achieved by using automatic exposure control and/or adjustment of mA and/or kV according to patient size and/or use of iterative reconstruction technique. FINDINGS: Diagnostic quality: Adequate There is no evidence for pulmonary embolism. The heart is enlarged. There is no pericardial effusion. There is a 5.6 cm area of consolidative opacity in the periphery of the right upper lobe. Enlarged right hilar lymph nodes seen measuring 19 x 19 mm. A few smaller nodular areas in the right lung apex are also seen. Small right pleural effusion. Limited visualized upper abdomen. No destructive osseous changes are seen. IMPRESSION: No evidence for pulmonary embolism. Prominent right upper lung opacity, as well as a enlarged right hilar lymph node, may represent pneumonia, however follow-up to resolution is recommended. Electronically signed by Rob Vance 04-19-2025 5:[address] 04/19/25 16:30 CT head without contrast History: Confusion Comparison: None Technique: Using multidetector thin collimation helical acquisition technique, axial, coronal and sagittal CT images from the skull base to the vertex were obtained without intravenous contrast. Dose reduction techniques were achieved by using automatic exposure control and/or adjustment of mA and/or kV according to patient size and/or use of iterative reconstruction technique. Findings: No intracranial hemorrhage, mass-effect, or midline shift. The ventricles are proportionate to the cerebral sulci. The matthews to white matter differentiation of the cerebral hemispheres is preserved. The basal cisterns are patent. The visualized paranasal sinuses are clear. Mastoid air cells are clear. Impression: No acute intracranial pathology. Electronically signed by Rob Vance 04-19-2025 5:49 PM Discharge Plan Visit Data Chief Complaint: Chest Pain Stated Complaint: CHEST PAIN ED Provider: Daniela Martinez Discharge Problem: Atrial fibrillation with rapid ventricular response, Acute confusion, Pneumonia Condition: Fair Forms Stand Alone Forms: [facility] Prescriptions Prescriptions: No Action cholecalciferol (vitamin D3) 50 mcg (2,000 unit) capsule 50 mcg PO DAILY Qty: 30 8RF Patient Comments: 04/16- otc unable to verify ferrous sulfate 325 mg (65 mg iron) tablet 325 mg PO DAILY Qty: 30 8RF Patient Comments: 04/16- otc unable to verify sildenafil 50 mg tablet 50 mg PO DAILY PRN (Reason: sexual activity) Qty: 30 3RF Patient Comments: 04/16- no fill history unable to verify Rx Instructions: administer 30 minutes to 4 hours before activity apixaban 5 mg tablet 5 mg PO BID Qty: 180 3RF Gemtesa 75 mg tablet 75 mg PO DAILY Qty: 90 3RF atorvastatin 20 mg tablet 20 mg PO DAILY Qty: 90 3RF omeprazole 40 mg capsule,delayed release(DR/EC) 40 mg PO BID Qty: 180 3RF tamsulosin 0.4 mg capsule 0.4 mg PO DAILY Qty: 90 3RF cyanocobalamin (vitamin B-12) 2,500 mcg tablet 2,500 mcg PO DAILY Qty: 30 8RF Patient Comments: 04/16- otc unable to verify divalproex 500 mg tablet extended release 24 hr 1,000 mg PO DAILY Qty: 60 5RF rizatriptan 10 mg tablet,disintegrating 10 mg PO Q2H PRN (Reason: migraine headache) Qty: 12 5RF Rx Instructions: do not exceed 3 doses per 24 hrs triamcinolone acetonide 0.1 % ointment 1 applic topical BID PRN (Reason: NEEDED) Patient Comments: last filled 03/08 7 day supply lisinopril 5 mg tablet 5 mg PO DAILY PRN (Reason: elevated blood pressure ) Patient Comments: 04/16- no fill history unable to verify metoprolol succinate 25 mg Tablet Extended Release 24 Hr 25 mg PO BID Qty: 30 0RF Referrals Referrals: Lisa Browning MD [Primary Care Provider] -
[2025-04-19 16:37] LABS: Alanine Aminotransferase 23.0 U/L (7-52); Albumin Globulin Ratio 1.0 (0.9-2); Albumin Level 3.6 gm/dl (3.4-5.0); Alkaline Phosphatase 54.0 U/L (34-104); Anion Gap 10.0 (3-11); Bilirubin,Total 1.5 mg/dl (0.2-1.0); Blood Urea Nitrogen 19.0 mg/dl (6-23); Calcium 9.1 mg/dl (8.6-10.3); Carbon Dioxide 23.0 mmol/L (21-32); Chloride 100.0 mmol/L (98-107); Creatinine Clr Calc Pharmacy 88.6 ml/min; Globulin 3.6 gm/dl (2.5-4.0); Glucose 111.0 mg/dl (70-99(Fasting)); Potassium 3.9 mmol/L (3.5-5.1); Sodium 133.0 mmol/L (136-145); Total Protein 7.2 gm/dl (6.0-8.3)
[2025-04-19] MEDS: ONDANSETRON INJ 2 MG/ML 2 ML VIAL IV STA (16:41)
[2025-04-19] MEDS: ASPIRIN CHEW 324 MG PO STA (16:41)
[2025-04-19] MEDS: MoRPHine SULFATE 4 MG/ML 1 ML CARP\\VIAL IV STA (16:41)
[2025-04-19 16:44] LABS: Lipase 8.0 U/L (11-82)
[2025-04-19] MEDS: OPTIRAY 320 125ml IV ONE (16:56)
[2025-04-19 17:01] LABS: Magnesium 1.9 mg/dl (1.7-2.4)
[2025-04-19] MEDS: SODIUM CHLORIDE 0.9% 500 ML IV ONE (17:17)
[2025-04-19] MEDS: METOPROLOL TARTRATE 1 MG/ML VIAL IV STA (17:17)
--- NOTE | 2025-04-19 17:49 | CT Scan Report ---
CT pulmonary angiogram with IV contrast History: Chest pain COMPARISON: None TECHNIQUE: CT angiography of the chest was performed without IV contrast followed by IV contrast, including 3D post processing CTA image reconstruction. Dose reduction techniques were achieved by using automatic exposure control and/or adjustment of mA and/or kV according to patient size and/or use of iterative reconstruction technique. FINDINGS: Diagnostic quality: Adequate There is no evidence for pulmonary embolism. The heart is enlarged. There is no pericardial effusion. There is a 5.6 cm area of consolidative opacity in the periphery of the right upper lobe. Enlarged right hilar lymph nodes seen measuring 19 x 19 mm. A few smaller nodular areas in the right lung apex are also seen. Small right pleural effusion. Limited visualized upper abdomen. No destructive osseous changes are seen. IMPRESSION: No evidence for pulmonary embolism. Prominent right upper lung opacity, as well as a enlarged right hilar lymph node, may represent pneumonia, however follow-up to resolution is recommended. Electronically signed by Rob Vance 04-19-2025 5:49 PM
--- NOTE | 2025-04-19 17:50 | CT Scan Report ---
CT head without contrast History: Confusion Comparison: None Technique: Using multidetector thin collimation helical acquisition technique, axial, coronal and sagittal CT images from the skull base to the vertex were obtained without intravenous contrast. Dose reduction techniques were achieved by using automatic exposure control and/or adjustment of mA and/or kV according to patient size and/or use of iterative reconstruction technique. Findings: No intracranial hemorrhage, mass-effect, or midline shift. The ventricles are proportionate to the cerebral sulci. The matthews to white matter differentiation of the cerebral hemispheres is preserved. The basal cisterns are patent. The visualized paranasal sinuses are clear. Mastoid air cells are clear. Impression: No acute intracranial pathology. Electronically signed by Rob Vance 04-19-2025 5:49 PM
[2025-04-19] MEDS ORDERED: ACETAMINOPHEN 325 MG TAB PO PRN (18:12)
[2025-04-19] MEDS: AZITHROMYCIN 250 MG TAB PO ONE (18:20)
[2025-04-19] MEDS: cefTRIAXone SODIUM 2,000 MG/50 ML BAG IV STA (18:21)
[2025-04-19 18:41] LABS: Appearance Urine Clear (Clear); Glucose Urine UA Negative (Negative)
[2025-04-19 18:49] LABS: Bacteria Urine Automated None Seen (None Seen); Cast Urine Automated 0-2 /lpf (0-2); Epithelial Cell Urine Auto 0-2 /hpf (0-2); WBC Urine Automated 0-5 /hpf (0-5)
[2025-04-19] MEDS: DIVALPROEX EXTENDED RELEASE 500 MG TAB PO SCH (18:56)
[2025-04-19] MEDS: VIBEGRON 75 MG TAB PO SCH (18:57)
[2025-04-19] MEDS: TAMSULOSIN HCL 0.4 MG CAP PO SCH (18:57)
--- NOTE | 2025-04-19 19:01 | History & Physical Report ---
Date of Service April 19, 2025 Assessment & Plan (1) Viral pneumonia: Plan: As above in the History of Present Illness. (2) Acute hyponatremia: Plan: As above in the History of Present Illness. (3) Hypocalcemia: Plan: As above in the History of Present Illness. (4) Acute dehydration: Plan: As above in the History of Present Illness. History of Present Illness Chief Complaint: "I was at the playground with my , standing and watching our grandson play by himself earlier this afternoon (04/19/2025, 1:00pm). All of a sudden, I felt this mild, sharp pain on my right side when I breathed in, not out. The intensity was like a 3 (out of 10 point intensity scale), and the pain was achy now, and it went down the back of my neck to both of my shoulders. We stayed at the playground for about 30 minutes, and all that time, I was standing, I was not playing with my grandson. I started feeling the chills at the playground, and I started sweating too. I was not coughing or wheezing. Because of the chills, I asked my drive us back home and we got home about 1:30pm. The sharp pain got sharper and worse by 2:30pm; it was like a 10 (out of 10 point intensity scale), and the achy pain was still in the back of my neck and in both of my shoulders. The pain was still a 10 (out of 10 point intensity scale), so my called the ambulance and the ambulance came and gave me some pain medicine (e.g., fentanyl shot), and then brought me to the ER this afternoon (04/19/2025, 4:00pm). Oh, I should let you know that I was in the hospital here from 04/16/2025 to 04/18/2025, and the ER doc told me that I had a viral (e.g., enteroviral) infection and that left me dehydrated and weak and my heart sped up with my AFIB. I didn't see my heart doctor, Dr. Rob Joiner, when I was in the hospital here from 04/16/2025 to 04/18/2025, so could you ask him to see me tomorrow, please? Thank you very much." Primary Care Provider: Lisa Browning MD 69 years old male with PMH of FULL CODE @ home, overweight with BMI 27.0 (height 177.8 cm; weight 85.4 kg), hyperlipidemia on atorvastatin 20mg PO daily, paroxysmal AFIB on metoprolol tartrate 25mg PO bid and apixaban 5mg PO bid, former tobacco abuse with no subsequent diagnosis of COPD, not on home O2 or home steroids, GERD/Canales's esophagus on omeprazole 40mg PO bid, migraine headache on valproic acid 1000mg PO daily, BPH on tamsulosin 04mg PO daily, urinary incontinence on vibegron 75mg PO daily, and erectile dysfunction on sildenafil 50mg PO daily prn erectile dysfunction, who reports: "I was at the playground with my , standing and watching our grandson play by himself earlier this afternoon (04/19/2025, 1:00pm). All of a sudden, I felt this mild, sharp pain on my right side when I breathed in, not out. The intensity was like a 3 (out of 10 point intensity scale), and the pain was achy now, and it went down the back of my neck to both of my shoulders. We stayed at the playground for about 30 minutes, and all that time, I was standing, I was not playing with my grandson. I started feeling the chills at the playground, and I started sweating too. I was not coughing or wheezing. Because of the chills, I asked my drive us back home and we got home about 1:30pm. The sharp pain got sharper and worse by 2:30pm; it was like a 10 (out of 10 point intensity scale), and the achy pain was still in the back of my neck and in both of my shoulders. The pain was still a 10 (out of 10 point intensity scale), so my called the ambulance and the ambulance came and gave me some pain medicine (e.g., fentanyl shot), and then brought me to the ER this afternoon (04/19/2025, 4:00pm). Oh, I should let you know that I was in the hospital here from 04/16/2025 to 04/18/2025, and the ER doc told me that I had a viral (e.g., enteroviral) infection and that left me dehydrated and weak and my heart sped up with my AFIB. I didn't see my heart doctor, Dr. Rob Joiner, when I was in the hospital here from 04/16/2025 to 04/18/2025, so could you ask him to see me tomorrow, please? Thank you very much." Patient reports lack of appetite since being diagnosed with acute enteroviral infection (04/16/2025, 12:09pm BIOFIRE respiratory pathogen PCR panel test). Patient denies antecedent/coincident anosmia, ageusia, hypogeusia, fevers, cough, wheeze, sore throat, hemoptysis, shortness of breath, dyspnea on exertion, palpitations, paroxysmal nocturnal dyspnea, orthopnea, platypnea, weight gain, weight loss, nausea, vomiting, diarrhea, abdominal pain, pelvic pain, hematemesis, hematochezia, melena, hematuria, dysuria, frequency, urgency, flank pain, headaches, dizziness, lightheadedness, visual changes, hearing changes, weakness, falls, syncope, trauma, travel history, sick contacts, or food/drug ingestions novel or new. All other review of systems are reported as negative by the patient on observation date 04/19/2025. In [facility] ER bed #B9, patient was afebrile @ 36.8 degrees Celsius, HR 123, RR 20, O2 sat 93% on room air, and BP 109/75 (04/19/2025, 4:02pm). Exam was noted for an elderly male who appeared run-down, worn-out, and anorexic, but not cachectic as patient was overweight with BMI 27.0 (height 177.8 cm; weight 85.4 kg). Chest was non-tender to palpation and clear to auscultation. No audible expiratory wheeze, egophony, pectoriloquy, increase in tactile fremitus, or flatness/dullness to percussion at the bases. Jugular venous pressure was estimated at 5cm above the sternal angle of Hossein, which is typically 5 cm above the right atrium; hence, no JVD was noted. Bilateral lower extremities were not edematous at all. Labs in [facility] ER bed #B9 included: WBC 11.39, N72 l16 M11, Hb 16.3, MCV 94.6, MCHC 34.2, platelet 162 (04/19/2025, 4:00pm). BIOFIRE respiratory pathogen PCR panel (04/19/2025, 6:59pm): MRSA nares screen (04/19/2025, 6:59pm): Na 133, K 3.9, CO2 23, anion gap 10, BUN 19, creatinine 0.79, glucose 111, Ca 9.1, Ca ionized 1.05, Mg 1.9, AST 22, ALT 23, ALK PHOS 54, total bili 1.5, albumin 3.6 (04/19/2025, 4:00pm). Lactic acid #1 1.0 mmol/L (04/19/2025, 6:03pm). Procalcitonin #1 0.05 ng/mL (04/19/2025, 4:00pm). CK (04/19/2025, 6:03pm). Troponin-I #1 4.5 pg/mL (04/19/2025, 4:00pm). Troponin-I #2 (04/19/2025, 8:00pm). Troponin-I #3 (04/20/2025, 12:00am). Lipase 8 U/L (04/19/2025, 4:00pm). U/A (04/19/2025, 6:01pm): LE-, nitrite- Additional testing in [facility] ER bed #B9 included: Portable CXR (04/19/2025, 3:55pm): 1. Interval small area of dense consolidation at the lateral right mid lung when compared to 04/16/2025 portable CXR. 2. No pneumothorax, effusino, cardiomegaly, or pulmonary vascular congestion. (by my review). CTA chest (04/19/2025, 4:30pm): 1. No evidence for pulmonary embolism. 2. Prominent right upper lung opacity, as well as a enlarged right hilar lymph node, may represent pneumonia, however follow-up to resolution is recommended. CT brain without IV contrast (04/19/2025, 4:30pm): 1. No acute bleed, mass, or midline shift. Patient was subsequently placed in OBSERVATION on the hospitalist service @ [facility] on 04/19/2025 with the following diagnoses: 1. Acute viral RUL CAP without effusion, R/O acute viral myocarditis. 2. Acute hypovolemic hyponatremia with initial Na 133 mmol/L (04/19/2025, 4:00pm). 3. Acute hypocalcemia with initial Ca ionized 1.05 mmol/L (04/19/2025, 4:00pm). 4. Acute dehydration with BUN:creatinine ratio > 20:1 (e.g., BUN 19, creatinine 0.79)(04/19/2025, 4:00pm). To address #1, patient was placed under droplet precautions, awaiting BIOFIRE respiratory pathogen PCR panel (04/19/2025, 6:59pm). While patient received azithromycin 500mg PO x 1 dose (04/19/2025, 6:20pm) and ceftriaxone 2g IV x 1 dose (04/19/2025, 6:21pm), patient's normal procalcitonin #1 0.05 ng/mL (04/19/2025, 4:00pm) and normal lactic acid #1 1.0 mmol/L (04/19/2025, 6:03pm) make acute bacterial RUL CAP highly unlikely. Hence, I have opted NOT to continue empiric antibiotics while patient remains in [facility]. Instead, I have ordered CK level (04/19/2025, 6:03pm) and TTE (04/20/2025, 7:00am) to evaluate patient for possible acute viral myocarditis. In the interim, patient received ASA 324mg PO x 1 dose (04/19/2025, 4:41pm) in [facility] ER bed #B9, and will continue with ASA 81mg PO daily in [facility] Med-Surg floor starting in the 04/20/2025, 9:00am) to mitigate (entero)viral-mediated inflammation of the heart. Patient also awaits formal CARDS Service evaluation with patient's own CARDS Dr. Rob Joiner, as requested by the patient himself, in the 04/20/2025 am. To address #2, patient was started on 1 liter of 0.9% NS @ 85 mL/hr (starting on 04/19/2025, 6:55pm), based on a delivery rate of 1 mL of 0.9% NS per kg of body weight per hour, and a body weight of 85.4 kg. I will check repeat Na level in the 04/20/2025 am. Of note, etiology of acute hypovolemic hyponatremia is most probably due to (entero)viral-mediated anorexia, as manifested by patient reporting that he does not feel hungry or wish to order a dinner tray in [facility] ER bed #B9. To address #3, patient was started on calcium gluconate 1g IV x 2 doses (starting on 04/19/2025, 6:55pm). I will check repeat Ca ionized level in the 04/20/2025 am. Of note, etiology of acute hypocalcemia is most probably due to (entero)viral-mediated anorexia, as manifested by patient reporting that he does not feel hungry or wish to order a dinner tray in [facility] ER bed #B9. To address #4, patient was started on 1 liter of 0.9% NS @ 85 mL/hr (starting on 04/19/2025, 6:55pm), based on a delivery rate of 1 mL of 0.9% NS per kg of body weight per hour, and a body weight of 85.4 kg. I will check repeat BUN:creatinine ratio in the 04/20/2025 am. Of note, etiology of acute dehydration is most probably due to (entero)viral-mediated anorexia, as manifested by patient reporting that he does not feel hungry or wish to order a dinner tray in [facility] ER bed #B9. Allergies Allergy/AdvReac Type Severity Reaction Status Date / Time No Known Allergies Allergy Verified 04/19/25 17:54 Home Medications Medication Instructions Recorded Confirmed Type cyanocobalamin (vitamin B-12) 2,500 mcg PO DAILY #30 tabs 12/08/21 04/19/25 Rx 2,500 mcg tablet cholecalciferol (vitamin D3) 50 50 mcg PO DAILY #30 caps 04/01/22 04/19/25 Rx mcg (2,000 unit) capsule ferrous sulfate 325 mg (65 mg 325 mg PO DAILY #30 tabs 04/01/22 04/19/25 Rx iron) tablet sildenafil 50 mg tablet 50 mg PO DAILY PRN sexual activity 03/08/24 04/19/25 Rx #30 tabs apixaban 5 mg tablet 5 mg PO BID #180 tabs 01/01/25 04/19/25 Rx vibegron 75 mg tablet (Gemtesa) 75 mg PO DAILY #90 tabs 01/03/25 04/19/25 Rx divalproex 500 mg tablet,extended 1,000 mg (2 x 500 mg) PO DAILY #60 02/20/25 04/19/25 Rx release 24 hr tabs rizatriptan 10 mg disintegrating 10 mg PO Q2H PRN migraine headache 02/20/25 04/19/25 Rx tablet #12 tabs atorvastatin 20 mg tablet 20 mg PO DAILY #90 tabs 02/22/25 04/19/25 Rx omeprazole 40 mg capsule,delayed 40 mg PO BID #180 caps 03/26/25 04/19/25 Rx release lisinopril 5 mg tablet 5 mg PO DAILY PRN elevated blood 04/16/25 04/19/25 History pressure triamcinolone acetonide 0.1 % 1 applic topical BID PRN NEEDED 04/16/25 04/19/25 History topical ointment metoprolol succinate 25 mg 25 mg PO BID #30 tabs 04/18/25 04/19/25 Rx tablet,extended release 24 hr tamsulosin 0.4 mg capsule 0.4 mg PO DAILY #90 caps 04/19/25 04/19/25 Rx Past Med/Surg History Problem List (Updated 04/19/25 @ 19:45 by Burt Leblanc MD, PhD) Hypocalcemia Acute hyponatremia Viral pneumonia Pneumonia (Acute) Acute confusion (Acute) Atrial fibrillation with rapid ventricular response (Acute) Acute dehydration (Acute) Generalized weakness (Acute) Atrial fibrillation with rapid ventricular response (Acute) Trigeminal autonomic cephalgias Bursitis of right hip Erectile dysfunction Atrial fibrillation (~01/20/23) Vitamin D deficiency Prediabetes Hypercholesteremia Hypertension GERD (gastroesophageal reflux disease) Canales's esophagus Arthritis Elevated PSA Migraine headache without aura Vitamin B12 deficiency BPH NOS w ur obs/LUTS Surgical History History of surgery vein surgery History of colonoscopy Hx of endoscopy H/O knee surgery History of appendectomy Family History (Updated 04/19/25 @ 19:42 by Burt Leblanc MD, PhD) Brother Esophageal cancer Heart disease Father , at 87 years of age from natural causes. No problems noted. Mother , at 86 years of age from natural causes. No problems noted. Other Diabetes Denies family history of Ovarian cancer Prostate cancer Myocardial infarction Breast cancer Colorectal cancer Social History (Updated 04/19/25 @ 19:44 by Burt Leblanc MD, PhD) Smoking Status: Former smoker Tobacco Type: Declines Age Started Using Tobacco: 18; Age Quit Using Tobacco: 33; Second Hand Exposure: No; Do You Dip or Chew Tobacco: No; Hx Alcohol Use: No Hx Substance Use: No Preferred Language: Malay Communication Ability: Effective Visual Impairment: Partially Limited Hearing Ability: Normal Partnership Development Manager Required: No Beliefs That Will Affect Care: None marital status: Current Living Situation: Spouse Current Living Situation Comment: current occupational status: retired 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 Feels Safe at Home: Yes Childhood Exposure to Second-Hand Smoke: Yes Diet: regular caffeine: Yes during the past year weight has: remained stable Dental Care, Regularly: Yes Physical Activity Frequency: 5-6 Times per Week Seatbelt Use: always Sunscreen Use: Yes Gender Identity: Male Assistive Devices: Cane and Walker Review of Systems Constitutional: Negative for antecedent/coincident fevers, chills, diaphoresis, cough, wheeze, sore throat, hemoptysis, chest pains, palpitations, pleurisy, nausea, vomiting, diarrhea, abdominal pain, pelvic pain, hematemesis, hematochezia, melena, hematuria, dysuria, frequency, urgency, headaches, dizziness, lightheadedness, visual changes, hearing changes, weakness, falls, syncope, trauma, travel history, sick contacts, or food/drug ingestions novel or new. All other review of systems are reported as negative by the patient on 08/07/2024. Physical Exam Constitutional: General: Comfortable, cooperative, coherent. Wide awake and alert. Not confused, lethargic, or obtunded. Patient speaks in complete, fluent, and articulate sentences without pause, interruption, cough, or wheeze. HEENT: NC/AT. EOMI. PERRL. No nystagmus, gaze paresis, anisocoria, miosis, mydriasis, chemosis, hyphema, scleral injection, conjunctivitis, or pterygium. No otorrhea. No rhinorrhea. Neck: Supple, no stridor, bruit, or goiter. Jugular venous pressure 5cm above the sternal angle of Hossein, which is typically 5 cm above the right atrium. Lymph: No anterior/posterior cervical lymphadenopathy, supraclavicular/infraclavicular lymphadenopathy, axilla/epitrochlear/inguinal lymphadenopathy. Chest: Symmetric rise and fall with respirations. Non-tender to palpation. Heart: RRR, S1 and S2. No S3 or S4 summation gallop. No tripartite friction rub. No murmur. Lungs: Clear to auscultation and percussion. No audible expiratory wheeze, ego phony, pectoriloquy, increase in tactile fremitus, or flatness/dullness to percussion at the bases. Abd: Soft, non-tender, non-distended. Bowel sounds auscultated in all 4 quadrants. No rebound, guarding, Sanchez's sign, or organomegaly. Ext: No clubbing, cyanosis, or edema. 2+ pedal pulses bilaterally. Skin: No decubitus ulcer, exanthem, or enanthem. Neuro: No tremors, tics, or myoclonus. DTR+. Urology: No mei catheter. No urethral discharge. Results & Data Results & Data Vital Signs (Past 12 Hours) Vital Signs Temp Pulse Pulse Resp BP BP Pulse Ox 04/19/25 18:42 87 18 04/19/25 18:39 91 H 127/86 04/19/25 18:36 90 31 H 04/19/25 18:30 125/92 04/19/25 18:30 125/92 04/19/25 18:18 98 H 20 92 04/19/25 18:15 83 20 90 04/19/25 18:06 83 22 94 04/19/25 18:00 107/93 04/19/25 18:00 107/93 04/19/25 17:48 91 H 21 95 04/19/25 17:33 107 H 23 92 04/19/25 17:30 121/92 04/19/25 17:30 121/92 04/19/25 17:24 90 20 92 04/19/25 17:22 124/89 04/19/25 17:22 124/89 04/19/25 17:22 124/89 04/19/25 17:17 107 H 108/91 04/19/25 17:15 99 H 19 92 04/19/25 17:06 107 H 29 H 91 04/19/25 17:04 108/91 04/19/25 17:04 108/91 04/19/25 16:42 103 H 15 93 04/19/25 16:39 116 H 29 H 94 04/19/25 16:24 132 H 23 94 04/19/25 16:18 120 H 04/19/25 16:03 120 H 23 93 04/19/25 16:02 36.8 C 123 H 20 109/75 93 04/19/25 16:02 93 04/19/25 16:02 123 H 20 93 04/19/25 16:02 36.8 C 123 H 20 109/75 93 04/19/25 16:00 109/75 04/19/25 16:00 109/75 O2 Del Method 04/19/25 18:42 04/19/25 18:39 04/19/25 18:36 04/19/25 18:30 04/19/25 18:30 04/19/25 18:18 04/19/25 18:15 04/19/25 18:06 04/19/25 18:00 04/19/25 18:00 04/19/25 17:48 04/19/25 17:33 04/19/25 17:30 04/19/25 17:30 04/19/25 17:24 04/19/25 17:22 04/19/25 17:22 04/19/25 17:22 04/19/25 17:17 04/19/25 17:15 04/19/25 17:06 04/19/25 17:04 04/19/25 17:04 04/19/25 16:42 04/19/25 16:39 04/19/25 16:24 04/19/25 16:18 04/19/25 16:03 04/19/25 16:02 Room Air 04/19/25 16:02 Room Air 04/19/25 16:02 Room Air 04/19/25 16:02 Room Air 04/19/25 16:00 04/19/25 16:00 Code Status & VTE Plan VTE Prophylaxis Plan VTE Prophylaxis will be ordered: Yes PG Care Time/CCT Total # of Minutes Spent Total Time Spent with Patient: Total time spent is greater than 50% in coordination of care (as documented) at patient's floor/unit and/or counseling patient: Coding Level of Care Code 34574 INT INP/OBS CARE 2/55MIN Diagnoses Viral pneumonia J12.9 Acute hyponatremia E87.1 Hypocalcemia E83.51 Acute dehydration E86.0
[2025-04-19] MEDS: CALCIUM GLUCONATE 1,000 MG/60 ML BAG IV SCH (19:59)
[2025-04-19 20:12] LABS: Chlamydia pneumoniae PCR Not Detected (NotDetected); Coronavirus 229E PCR Not Detected (NotDetected); Coronavirus CoV-2 (COVID19)PCR Not Detected (NotDetected); Coronavirus HKU1 PCR Not Detected (NotDetected); Coronavirus NL63 PCR Not Detected (NotDetected); Coronavirus OC43PCR Not Detected (NotDetected); Human Metapneumovirus PCR Not Detected (NotDetected); Parainfluenza Virus 1 PCR Not Detected (NotDetected); Parainfluenza Virus 2 PCR Not Detected (NotDetected); Parainfluenza Virus 3 PCR Not Detected (NotDetected); Parainfluenza Virus 4 PCR Not Detected (NotDetected); Respiratory Syncytial VirusPCR Not Detected (NotDetected); Rhinovirus/Enterovirus PCR DETECTED (NotDetected)
[2025-04-19] MEDS: SODIUM CHLORIDE 0.9% 1,000 ML IV ONE (20:32)
[2025-04-19 21:09] LABS: Creatine Kinase 45.0 U/L (30-223)
[2025-04-19] MEDS: METOPROLOL SUCC 25MG EXT REL TAB PO STA (22:42)
[2025-04-19] MEDS: APIXABAN 5 MG TABLET PO STA (22:42)
[2025-04-20 02:46] VITALS: TEMP 97.5
[2025-04-20 07:45] LABS: Hematocrit (blood only) 44.4 % (42.0-52.0); Hemoglobin 14.8 g/dl (14.0-18.0); Immature Granulocytes # (auto) 0.03 K/uL (0.01-0.20); Immature Granulocytes % (auto) 0.3 %; Mean Corpuscular Hemoglobin 31.8 pg (25.0-34.0); Mean Corpuscular Volume 95.3 fL (80.0-100.0); Platelet Count 151 K/uL (130-400); RDW Standard Deviation 45.2 fL (36.4-46.3); Red Blood Count 4.66 M/uL (4.70-6.10); White Blood Count 9.38 K/ul (4.8-10.8)
[2025-04-20 08:03] LABS: Anion Gap 7.0 (3-11); Blood Urea Nitrogen 20.0 mg/dl (6-23); Calcium 8.6 mg/dl (8.6-10.3); Carbon Dioxide 27.0 mmol/L (21-32); Chloride 103.0 mmol/L (98-107); Creatinine Clr Calc Pharmacy 101.4 ml/min; Glucose 94.0 mg/dl (70-99(Fasting)); Potassium 4.4 mmol/L (3.5-5.1); Sodium 137.0 mmol/L (136-145)
[2025-04-20] MEDS: APIXABAN 5 MG TABLET PO SCH (08:08)
[2025-04-20] MEDS: ASPIRIN 81 MG ECTAB PO SCH (08:08)
[2025-04-20] MEDS: METOPROLOL SUCC 25MG EXT REL TAB PO SCH (08:08)
[2025-04-20] MEDS ORDERED: ATORVASTATIN 20 MG TAB PO SCH (09:00)
--- NOTE | 2025-04-20 10:39 | Cardiology Consultation ---
Date of Consultation April 20, 2025 Assessment & Plan (1) Chest pain: (2) Atrial fibrillation with rapid ventricular response: (3) Anticoagulant long-term use: Plan 1. Chest pain: His chest pain appears to be pleuritic and likely due to a pneumonia, which is visible on chest x-ray on the right side. There is no evidence that is cardiac in nature (his cardiac enzymes are negative x 3 this admission and his electrocardiogram does not show acute changes). 2. Atrial fibrillation: He presents recently with atrial fibrillation with a rapid heart rate which quickly normalized after presentation. This is likely due to high catecholamine response, and I would recommend adjustment of his medications. I do not know why his beta-keri was switched from metoprolol succinate 50 mg daily to 25 mg twice a day, we typically do not use that drug twice a day for several reasons including that if he takes it in the morning he will have better rate control during the day and perhaps less rate control at night which is physiologic, in addition to which it is typically a once a day drug. I would recommend switching back to daily metoprolol succinate with an increase in dose to be taken in the morning only. 3. Anticoagulation: He should be on an anticoagulant, he seems to be doing well on Eliquis and he is on the correct dose and therefore I would continue Eliquis 5 mg twice a day. 4. 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 I do not see any evidence that this is due to myocarditis. It may be due to the presence of atrial fibrillation which can cause left ventricular dysfunction, especially if the rate is not adequately controlled. I will increase his beta-blockade as noted above, we need to consider other agents but I have not started them today as I would like to make sure we get his heart rate controlled first. If his blood pressure still holds I would add an LUIZ inhibitor and we can consider addition of Farxiga or Jardiance as well spironolactone. We may not want to start all of these medications now, with rate control we may be able to see improvement in his left ventricular function without addition of all these medications. We may want to consider some evaluation for ischemia but I am not sure that is a likely cause for this finding. In addition we could look for other causes of cardiomyopathy including hemochromatosis, his iron level was normal in 2021. His protein is not elevated although he still could have amyloidosis but his echo does not suggest that on my review. Sarcoid is a possibility. I would probably start with the most obvious cause which is the atrial fibrillation, treat that for short period of time and see if his LV function normalizes. We could consider converting his rhythm back to normal which might also help. History of Present Illness Reason for Consultation: Atrial fibrillation Attending Physician: Burt Leblanc MD, PhD History of Present Illness This is a 69-year-old male whose primary supply crib attendant in our office is Dr. Joiner. He has a long history of paroxysmal atrial fibrillation and was recently identified as having possibly persistent atrial fibrillation and was seen in our office on December 18, 2024 for that. At that time it was recommended that he continue monitoring his heart rate to maintain good heart rate control and to continue anticoagulation with Eliquis. For rate control he was on metoprolol succinate 50 mg daily at that time. He had an echocardiogram performed on February 04, 2023 which was read as top normal size with normal left ventricular systolic function and no wall motion abnormalities, this was done during sinus rhythm. On my review today I do not know that I would read ejection fraction that high, but it was not significantly reduced. He was also seen in our office by vascular medicine April 05, 2025 for chronic venous insufficiency and sclerotherapy was recommended but that has not been done as yet. He presented to the emergency room on April 16, 2025 with weakness and atrial fibrillation and was felt to be dehydrated as he was having diarrhea. His heart rate was 138 bpm on presentation in atrial fibrillation. He was kept for several days and discharged on April 18, 2025. During that hospitalization he was felt to have a viral infection and his heart rate improved with rehydration and his medications were changed to metoprolol succinate 25 mg twice a day but no increase in daily dose. He returns to the emergency room on April 19, 2025 with right sided chest discomfort and a pleuritic component, this is likely due to a pneumonia and his presenting electrocardiogram shows atrial fibrillation at 121 bpm. Evaluation here included a chest x-ray on presentation which showed consolidation in the right lung, a chest CTA was also done which showed no pulmonary embolism but a right upper lobe opacity. His white count was elevated on presentation and his troponin measurements have been normal (x 3 this presentation and x 1 on his last several days ago). His heart rate has now normalized. He is not on telemetry. He is now feeling better, his right sided chest discomfort is less of an issue and he is not been aware of his heart rate. He has been walking around his room without difficulty. Allergies Allergy/AdvReac Type Severity Reaction Status Date / Time No Known Allergies Allergy Verified 04/19/25 17:54 Home Medications Medication Instructions Recorded Confirmed Type cyanocobalamin (vitamin B-12) 2,500 mcg PO DAILY #30 tabs 12/08/21 04/19/25 Rx 2,500 mcg tablet cholecalciferol (vitamin D3) 50 50 mcg PO DAILY #30 caps 04/01/22 04/19/25 Rx mcg (2,000 unit) capsule ferrous sulfate 325 mg (65 mg 325 mg PO DAILY #30 tabs 04/01/22 04/19/25 Rx iron) tablet sildenafil 50 mg tablet 50 mg PO DAILY PRN sexual activity 03/08/24 04/19/25 Rx #30 tabs apixaban 5 mg tablet 5 mg PO BID #180 tabs 01/01/25 04/19/25 Rx vibegron 75 mg tablet (Gemtesa) 75 mg PO DAILY #90 tabs 01/03/25 04/19/25 Rx divalproex 500 mg tablet,extended 1,000 mg (2 x 500 mg) PO DAILY #60 02/20/25 04/19/25 Rx release 24 hr tabs rizatriptan 10 mg disintegrating 10 mg PO Q2H PRN migraine headache 02/20/25 04/19/25 Rx tablet #12 tabs atorvastatin 20 mg tablet 20 mg PO DAILY #90 tabs 02/22/25 04/19/25 Rx omeprazole 40 mg capsule,delayed 40 mg PO BID #180 caps 03/26/25 04/19/25 Rx release lisinopril 5 mg tablet 5 mg PO DAILY PRN elevated blood 04/16/25 04/19/25 History pressure triamcinolone acetonide 0.1 % 1 applic topical BID PRN NEEDED 04/16/25 04/19/25 History topical ointment metoprolol succinate 25 mg 25 mg PO BID #30 tabs 04/18/25 04/19/25 Rx tablet,extended release 24 hr tamsulosin 0.4 mg capsule 0.4 mg PO DAILY #90 caps 04/19/25 04/19/25 Rx Patient History Surgical History History of surgery vein surgery History of colonoscopy Hx of endoscopy H/O knee surgery History of appendectomy Family History Brother Esophageal cancer Heart disease Father , at 87 years of age from natural causes. No problems noted. Mother , at 86 years of age from natural causes. No problems noted. Other Diabetes Denies family history of Ovarian cancer Prostate cancer Myocardial infarction Breast cancer Colorectal cancer Social History Smoking Status: Former smoker Tobacco Type: Declines Age Started Using Tobacco: 18; Age Quit Using Tobacco: 33; Second Hand Exposure: No; Do You Dip or Chew Tobacco: No; Hx Alcohol Use: Yes Alcohol type: wine Hx Substance Use: No Preferred Language: Turkish Communication Ability: Effective Visual Impairment: Partially Limited Hearing Ability: Normal Fashion Buying Internship Required: No Beliefs That Will Affect Care: None marital status: Current Living Situation: Spouse Current Living Situation Comment: current occupational status: retired 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 Feels Safe at Home: Yes Childhood Exposure to Second-Hand Smoke: Yes Diet: regular caffeine: Yes during the past year weight has: remained stable Dental Care, Regularly: Yes Physical Activity Frequency: 5-6 Times per Week Seatbelt Use: always Sunscreen Use: Yes Gender Identity: Male Assistive Devices: Glasses Review of Systems Review of Systems: All systems reviewed & are unremarkable except as noted in HPI & below Physical Exam Physical Exam: Constitutional: Alert, cooperative and in no distress. HEENT: Unremarkable Neck: No jugular venous distention, carotid pulses are normal and equal bilaterally without bruits. Pulmonary: Clear to auscultation bilaterally. Cardiac: Regular rhythm with no murmur, gallop or rub. Abdomen: Soft, nontender with normal bowel sounds. Extremities: No edema. Neurologic: No focal findings. Skin: No rash, ecchymoses or petechiae. Results & Data Vital Signs (Past 12 Hours) Vital Signs Temp Pulse Resp BP BP Pulse Ox O2 Del Method 04/20/25 08:03 36.4 C L 79 16 111/70 94 Room Air 04/20/25 01:50 36.4 C L 86 18 106/72 93 Room Air 04/19/25 22:56 Room Air Laboratory Results Cardiac Enzymes 04/19/25 04/19/25 04/20/25 Range/Units 16:00 20:46 00:13 AST 22 (13-39) U/L Troponin I High Sens 4.5 5.1 4.9 (0-20) pg/ml CBC 04/19/25 04/20/25 Range/Units 16:00 07:27 WBC 11.39 H 9.38 (4.8-10.8) K/ul RBC 5.04 4.66 L (4.70-6.10) M/uL Hgb 16.3 14.8 (14.0-18.0) g/dl Hct 47.7 44.4 (42.0-52.0) % Plt Count 162 151 (130-400) K/uL Neut # (Auto) 8.19 H 5.90 (1.40-6.50) K/uL Lymph # (Auto) 1.87 2.64 (1.20-3.40) K/uL [place] # (Auto) 1.28 H 0.78 H (0.11-0.59) K/uL Eos # (Auto) 0.00 0.01 (0.00-0.50) K/uL Baso # (Auto) 0.03 0.02 (0.00-0.20) K/uL Comprehensive Metabolic Panel 04/19/25 04/20/25 Range/Units 16:00 07:27 Sodium 133 L 137 (136-145) mmol/L Potassium 3.9 4.4 (3.5-5.1) mmol/L Chloride 100 103 (98-107) mmol/L Carbon Dioxide 23 27 (21-32) mmol/L BUN 19 20 (6-23) mg/dl Creatinine 0.79 0.69 (0.6-1.4) mg/dl Glucose 111 H 94 (70-99(Fasting)) mg/dl Calcium 9.1 8.6 (8.6-10.3) mg/dl AST 22 (13-39) U/L ALT 23 (7-52) U/L Alkaline Phosphatase 54 (34-104) U/L Total Protein 7.2 (6.0-8.3) gm/dl Albumin 3.6 (3.4-5.0) gm/dl Intake and Output 04/19/25 04/20/25 04/20/25 22:59 06:59 14:59 Intake Total 670 / 770 100 / 770 1000 / 1000 Output Total 200 / 200 Balance 670 / 570 -100 / 570 1000 / 1000 Intake: IV 670 / 670 1000 / 1000 Calcium Gluconate 1,000 mg In 120 / 120 60 ml @ 240 mls/hr IV Q15M NELI Rx#:[id number] Sodium Chloride 0.9% 1,000 ml @ 500 / 500 1000 / 1000 85 mls/hr IV .[id number] ONE Rx#: [id number] cefTRIAXone SODIUM 2,000 mg In 50 / 50 50 ml @ 100 mls/hr IV NOW STA Rx#:[id number] Oral 100 / 100 Output: Urine 200 / 200 Other: Weight 82.146 kg Weight Measurement Method Standing Scale Diagnostic Findings Telemetry: He is not on telemetry. Echocardiogram: His echocardiogram does not appear normal, his left ventricular function does appear to be diminished when compared to his prior echocardiogram. Some of this can be related to his heart rate which is somewhat elevated and the irregularity which makes evaluation of left ventricular function more difficult. It does appear that his cardiac function is reduced however (a formal report is pending). PG Care Time/CCT Total # of Minutes Spent Total Time Spent with Patient: Total time spent is greater than 50% in coordination of care (as documented) at patient's floor/unit and/or counseling patient: Coding Level of Care Code 48835 INT INP/OBS CARE 3/75MIN Diagnoses Chest pain R07.9 Atrial fibrillation with rapid ventricular response I48.91 Anticoagulant long-term use Z79.01
[2025-04-20] MEDS: METOPROLOL SUCC 50MG EXT REL TAB PO STA (12:09)
[2025-04-20 12:16] VITALS: O2SAT 93
[2025-04-20 16:13] VITALS: BP 107/70; PULSE 98; RESP 18
--- NOTE | 2025-04-20 16:29 | Discharge Summary ---
Discharge Summary Date of Service April 20, 2025 Principal Dx & Hospital Course #1 = Principal Diagnosis (1) Viral pneumonia: As above in the History of Present Illness. (2) Acute hyponatremia: As above in the History of Present Illness. (3) Hypocalcemia: As above in the History of Present Illness. (4) Acute dehydration: As above in the History of Present Illness. Admission HPI Per Admitting Provider 69 years old male with PMH of FULL CODE @ home, overweight with BMI 27.0 (height 177.8 cm; weight 85.4 kg), hyperlipidemia on atorvastatin 20mg PO daily, paroxysmal AFIB on metoprolol tartrate 25mg PO bid and apixaban 5mg PO bid, former tobacco abuse with no subsequent diagnosis of COPD, not on home O2 or home steroids, GERD/Canales's esophagus on omeprazole 40mg PO bid, migraine headache on valproic acid 1000mg PO daily, BPH on tamsulosin 04mg PO daily, uri nary incontinence on vibegron 75mg PO daily, and erectile dysfunction on sildenafil 50mg PO daily prn erectile dysfunction, who reports: "I was at the playground with my , standing and watching our grandson play by himself earlier this afternoon (04/19/2025, 1:00pm). All of a sudden, I felt this mild, sharp pain on my right side when I breathed in, not out. The intensity was like a 3 (out of 10 point intensity scale), and the pain was achy now, and it went down the back of my neck to both of my shoulders. We stayed at the playground for about 30 minutes, and all that time, I was standing, I was not playing with my grandson. I started feeling the chills at the playground, and I started sweating too. I was not coughing or wheezing. Because of the chills, I asked my drive us back home and we got home about 1:30pm. The sharp pain got sharper and worse by 2:30pm; it was like a 10 (out of 10 point intensity scale), and the achy pain was still in the back of my neck and in both of my shoulders. The pain was still a 10 (out of 10 point intensity scale), so my called the ambulance and the ambulance came and gave me some pain medicine (e.g., fentanyl shot), and then brought me to the ER this afternoon (04/19/2025, 4:00pm). Oh, I should let you know that I was in the hospital here from 04/16/2025 to 04/18/2025, and the ER doc told me that I had a viral (e.g., enteroviral) infection and that left me dehydrated and weak and my heart sped up with my AFIB. I didn't see my heart doctor, Dr. Rob Joiner, when I was in the hospital here from 04/16/2025 to 04/18/2025, so could you ask him to see me tomorrow, please? Thank you very much." Patient reports lack of appetite since being diagnosed with acute enteroviral infection (04/16/2025, 12:09pm BIOFIRE respiratory pathogen PCR panel test). Patient denies antecedent/coincident anosmia, ageusia, hypogeusia, fevers, cough, wheeze, sore throat, hemoptysis, shortness of breath, dyspnea on exertion, palpitations, paroxysmal nocturnal dyspnea, orthopnea, platypnea, weight gain, weight loss, nausea, vomiting, diarrhea, abdominal pain, pelvic pain, hematemesis, hematochezia, melena, hematuria, dysuria, frequency, urgency, flank pain, headaches, dizziness, lightheadedness, visual changes, hearing changes, weakness, falls, syncope, trauma, travel history, sick contacts, or food/drug ingestions novel or new. All other review of systems are reported as negative by the patient on observation date 04/19/2025. In [facility] ER bed #B9, patient was afebrile @ 36.8 degrees Celsius, HR 123, RR 20, O2 sat 93% on room air, and BP 109/75 (04/19/2025, 4:02pm). Exam was noted for an elderly male who appeared run-down, worn-out, and anorexic, but not cachectic as patient was overweight with BMI 27.0 (height 177.8 cm; weight 85.4 kg). Chest was non-tender to palpation and clear to auscultation. No audible expiratory wheeze, egophony, pectoriloquy, increase in tactile fremitus, or flatness/dullness to percussion at the bases. Jugular venous pressure was estimated at 5cm above the sternal angle of Hossein, which is typically 5 cm above the right atrium; hence, no JVD was noted. Bilateral lower extremities were not edematous at all. Labs in [facility] ER bed #B9 included: WBC 11.39, N72 l16 M11, Hb 16.3, MCV 94.6, MCHC 34.2, platelet 162 (04/19/2025, 4:00pm). BIOFIRE respiratory pathogen PCR panel (04/19/2025, 6:59pm): positive for enterovirus/rhinovirus MRSA nares screen (04/19/2025, 6:59pm): negative Na 133, K 3.9, CO2 23, anion gap 10, BUN 19, creatinine 0.79, glucose 111, Ca 9.1, Ca ionized 1.05, Mg 1.9, AST 22, ALT 23, ALK PHOS 54, total bili 1.5, albumin 3.6 (04/19/2025, 4:00pm). Lactic acid #1 1.0 mmol/L (04/19/2025, 6:03pm). Procalcitonin #1 0.05 ng/mL (04/19/2025, 4:00pm). CK 45 U/L (04/19/2025, 4:00pm). Troponin-I #1 4.5 pg/mL (04/19/2025, 4:00pm). Troponin-I #2 5.1 pg/mL (04/19/2025, 8:46pm). Troponin-I #3 4.9 pg/mL (04/20/2025, 12:13am). Lipase 8 U/L (04/19/2025, 4:00pm). U/A (04/19/2025, 6:01pm): LE-, nitrite- Additional testing in [facility] ER bed #B9 included: Portable CXR (04/19/2025, 3:55pm): 1. Interval small area of dense consolidation at the lateral right mid lung when compared to 04/16/2025 portable CXR. 2. No pneumothorax, effusino, cardiomegaly, or pulmonary vascular congestion. (by my review). CTA chest (04/19/2025, 4:30pm): 1. No evidence for pulmonary embolism. 2. Prominent right upper lung opacity, as well as a enlarged right hilar lymph node, may represent pneumonia, however follow-up to resolution is recommended. CT brain without IV contrast (04/19/2025, 4:30pm): 1. No acute bleed, mass, or midline shift. Patient was subsequently placed in OBSERVATION on the hospitalist service @ [facility] on 04/19/2025 with the following diagnoses: 1. Acute viral RUL CAP without effusion, R/O acute viral myocarditis. 2. Acute hypovolemic hyponatremia with initial Na 133 mmol/L (04/19/2025, 4 :00pm). 3. Acute hypocalcemia with initial Ca ionized 1.05 mmol/L (04/19/2025, 4:00pm). 4. Acute dehydration with BUN:creatinine ratio > 20:1 (e.g., BUN 19, creatinine 0.79)(04/19/2025, 4:00pm). To address #1, patient was placed under droplet precautions, and underwent BIOFIRE respiratory pathogen PCR panel (04/19/2025, 6:59pm) which was positive only for enterovirus/rhinovirus (cf., BIOFIRE respiratory pathogen PCR panel (04/09/2025, 2:44pm) positive only for enterovirus/rhinovirus. While patient received azithromycin 500mg PO x 1 dose (04/19/2025, 6:20pm) and ceftriaxone 2g IV x 1 dose (04/19/2025, 6:21pm), patient's normal procalcitonin #1 0.05 ng/mL (04/19/2025, 4:00pm) and normal lactic acid #1 1.0 mmol/L (04/19/2025, 6:03pm) make acute bacterial RUL CAP highly unlikely. Hence, I opted NOT to continue empiric antibiotics while patient remains in [facility]. Instead, I ordered CK level, which was normal at 45 U/L (04/19/2025, 4:00pm) and TTE (04/20/2025, 7:00am) to evaluate patient for possible acute viral myocarditis. In the interim, patient received ASA 324mg PO x 1 dose (04/19/2025, 4:41pm) in [facility] ER bed #B9, and will continue with ASA 81mg PO daily in [facility] Med-Surg floor starting in the 04/20/2025, 9:00am) to mitigate (entero)viral-mediated inflammation of the heart. Patient also underwent formal CARDS Service evaluation with patient's own CARDS Dr. Rob Joiner, as requested by the patient himself, in the 04/20/2025 am. Subsequently, CARDS Dr. Jonel Harris saw/evaluated the patient on 04/20/2025, 10:39am, and who recommended that patient increase his metoprolol succinate dose from 50mg PO daily (but actually receiving 25mg PO bid for unclear reasons) to 75mg PO daily. Subsequently, patient received metoprolol succinate 25mg PO bid x 1 dose (04/20/2025, 8:08am), followed by metoprolol succinate 50mg PO x 1 dose (04/20/2025, 12:09pm), and was discharged home with an electronic prescription for metoprolol succinate 75mg PO qam, #30 tablets, no refills, transmitted to his [id number], [address] [place] [address], on 04/20/2025, prior to hospital discharge home on 04/20/2025. Of final note, patient was advised to follow up with his PCP Dr. Lisa Browning within 5-7 days of hospital discharge to discuss the official report for TTE (04/20/2025, 7:00am), which is not available as of discharge date/time, 04/20/2025, 4:28pm. To address #2, patient received 1 liter of 0.9% NS @ 85 mL/hr (starting on 04/19, 8:32pm), based on a delivery rate of 1 mL of 0.9% NS per kg of body weight per hour, and a body weight of 85.4 kg. Subsequently, acute hypovolemic hyponatremia RESOLVED with post-hydration Na 137 mmol/L (04/20/2025, 7:27am). Of note, etiology of acute hypovolemic hyponatremia was most probably due to (entero)viral-mediated anorexia, as manifested by patient reporting that he does not feel hungry or wish to order a dinner tray in [facility] ER bed #B9. To address #3, patient received calcium gluconate 1g IV x 2 doses (starting on 04/19/2025, 7:59pm, 8:16pm). Subsequently, acute hypocalcemia RESOLVED with post-supplement Ca ionized 1.13 mmol/L (04/20/2025, 7:27am). Of note, etiology of acute hypocalcemia was most probably due to (entero)viral-mediated anorexia, as manifested by patient reporting that he does not feel hungry or wish to order a dinner tray in [facility] ER bed #B9. To address #4, patient received 1 liter of 0.9% NS @ 85 mL/hr (starting on 04/19/2025, 8:32pm), based on a delivery rate of 1 mL of 0.9% NS per kg of body weight per hour, and a body weight of 85.4 kg. Subsequently, acute dehydration PERSISTS with BUN:creatinine ratio still > 20:1 (e.g., BUN 20, creatinine 0.69)(04/20/2025, 7:27am). Consequently, patient was advised to drink at least 8 ounces of water for each hour that he remains awake, for the next 7 days. Patient reports that he will comply with this recommendation. Of note, etiology of acute dehydration is most probably due to (entero)viral-mediated anorexia, as manifested by patient reporting that he does not feel hungry or wish to order a dinner tray in [facility] ER bed #B9. Discharge Exam Constitutional General: Comfortable, cooperative, coherent. Wide awake and alert. Not confused, lethargic, or obtunded. Patient speaks in complete, fluent, and articulate sentences without pause, interruption, cough, or wheeze. HEENT: NC/AT. EOMI. PERRL. No nystagmus, gaze paresis, anisocoria, miosis, mydriasis, chemosis, hyphema, scleral injection, conjunctivitis, or pterygium. No otorrhea. No rhinorrhea. Neck: Supple, no stridor, bruit, or goiter. Jugular venous pressure 5cm above the sternal angle of Hossein, which is typically 5 cm above the right atrium. Lymph: No anterior/posterior cervical lymphadenopathy, supraclavicular/infraclavicular lymphadenopathy, axilla/epitrochlear/inguinal lymphadenopathy. Chest: Symmetric rise and fall with respirations. Non-tender to palpation. Heart: RRR, S1 and S2. No S3 or S4 summation gallop. No tripartite friction rub. No murmur. Lungs: Clear to auscultation and percussion. No audible expiratory wheeze, egophony, pectoriloquy, increase in tactile fremitus, or flatness/dullness to percussion at the bases. Abd: Soft, non-tender, non-distended. Bowel sounds auscultated in all 4 quadrants. No rebound, guarding, Sanchez's sign, or organomegaly. Ext: No clubbing, cyanosis, or edema. 2+ pedal pulses bilaterally. Skin: No decubitus ulcer, exanthem, or enanthem. Neuro: No tremors, tics, or myoclonus. DTR+. 5/5 motor strength in all 4 extremities, both proximally and distally. Urology: No mei catheter. No urethral discharge. Discharge Plan Discharge Items Patient Disposition: Home - Self-Care Reason For Visit: RUL ENTEROVIRAL PNEUMONIA Discharge Diagnosis: RUL enteroviral CAP. Condition on Discharge: Fair Activity Comment: No steps, stairs, sex, house work, yard work for 60 days. Lifting: None Bathing: No limitations Exercise/Sports: None Driving/Machine Use: No limitations Weightbearing: Full weightbearing Non-emergency contact: Primary Care Provider Call non-emergency contact if: you have any medication questions Follow-up/Referrals: Lisa Browning MD [Primary Care Provider] - 05/01/25 11:00 am Diet: Heart Healthy Addtl Attending Provider Instructions: See your PCP Dr. Lisa Browning within 5-7 days of hospital discharge for routine followup visit and to arrange for outpatient ECHO test in 6 months from 04/20/2025 to see if your heart has changed since 04/20/2025 ECHO in the setting of acute RUL enteroviral CAP. Pending Studies at Discharge: Yes Studies:: See your PCP Dr. Lisa Browning within 5-7 days of hospital discharge for routine followup visit and to arrange for outpatient ECHO test in 6 months from 04/20/2025 to see if your heart has changed since 04/20/2025 ECHO in the setting of acute RUL enteroviral CAP. Stand-Alone Forms: My [employer], Smoking Cessation Medications and DC Order Prescriptions: New aspirin 81 mg Tablet,Delayed Release (Dr/Ec) 81 mg PO DAILY Qty: 30 0RF metoprolol succinate 25 mg Tablet Extended Release 24 Hr 75 mg PO QAM Qty: 30 0RF Continued cholecalciferol (vitamin D3) 50 mcg (2,000 unit) capsule 50 mcg PO DAILY Qty: 30 8RF Patient Comments: 04/16- otc unable to verify ferrous sulfate 325 mg (65 mg iron) tablet 325 mg PO DAILY Qty: 30 8RF Patient Comments: 04/16- otc unable to verify apixaban 5 mg tablet 5 mg PO BID Qty: 180 3RF Gemtesa 75 mg tablet 75 mg PO DAILY Qty: 90 3RF atorvastatin 20 mg tablet 20 mg PO DAILY Qty: 90 3RF omeprazole 40 mg capsule,delayed release(DR/EC) 40 mg PO BID Qty: 180 3RF tamsulosin 0.4 mg capsule 0.4 mg PO DAILY Qty: 90 3RF cyanocobalamin (vitamin B-12) 2,500 mcg tablet 2,500 mcg PO DAILY Qty: 30 8RF Patient Comments: 04/16- otc unable to verify divalproex 500 mg tablet extended release 24 hr 1,000 mg PO DAILY Qty: 60 5RF rizatriptan 10 mg tablet,disintegrating 10 mg PO Q2H PRN (Reason: migraine headache) Qty: 12 5RF Rx Instructions: do not exceed 3 doses per 24 hrs triamcinolone acetonide 0.1 % ointment 1 applic topical BID PRN (Reason: NEEDED) Patient Comments: last filled 03/08 7 day supply lisinopril 5 mg tablet 5 mg PO DAILY PRN (Reason: elevated blood pressure ) Patient Comments: 04/16- no fill history unable to verify Discontinued sildenafil 50 mg tablet 50 mg PO DAILY PRN (Reason: sexual activity) Qty: 30 3RF Patient Comments: 04/16- no fill history unable to verify Rx Instructions: administer 30 minutes to 4 hours before activity metoprolol succinate 25 mg Tablet Extended Release 24 Hr 25 mg PO BID Qty: 30 0RF Discharge Orders: Discharge Order (Routine); Ordered 04/20/25 Ordered By: Burt Leblanc Admission Data Admit Date/Time: 04/19/25 18:12 Attending Provider: Burt Leblanc Admit Provider: Burt Leblanc Primary Care Provider: Lisa Browning Other Providers: Burt Leblanc; Rob Joiner Hospital Stay Data Consultations 04/19/25 17:54 ED Decision to Admit Stat 04/20/25 08:48 Consult Cardiology Routine Diagnostic Imagining Performed 04/19/25 16:30 CT for pulmonary embolism PE [CT angio chest PE protocol] Stat CT head/brain wo con Stat Pending Results Patient Have Any Pending Studies at Discharge: Yes Discharge Instructions Given to Patient (Per Discharging Provider) See your PCP Dr. Lisa Browning within 5-7 days of hospital discharge for ro utine followup visit and to arrange for outpatient ECHO test in 6 months from 04/20/2025 to see if your heart has changed since 04/20/2025 ECHO in the setting of acute RUL enteroviral CAP. Total Time Total Time Spent Total Time Spent (In Minutes): 35 minutes. Of this time period, 19 minutes were spent in coordinating patient's discharge. Coding Level of Care Code 71630 INP/OBS DISCH >30 MIN Diagnoses Viral pneumonia J12.9 Acute hyponatremia E87.1 Hypocalcemia E83.51 Acute dehydration E86.0
--- NOTE | 2025-04-20 17:53 | XCELERA ---
[id number]
[2025-04-21] MEDS ORDERED: METOPROLOL SUCC 25MG EXT REL TAB PO SCH (09:00)
--- NOTE | 2025-04-21 22:59 | Electrocardiogram Report ---
Test Reason : Blood Pressure : */* mmHG Vent. Rate : 125 BPM Atrial Rate : * BPM P-R Int : * ms QRS Dur : 86 ms QT Int : 330 ms P-R-T Axes : * 80 4 degrees QTcB Int : 476 ms Atrial fibrillation with rapid ventricular response with premature ventricular or aberrantly conducte d complexes Abnormal ECG When compared with ECG of 19-Apr-2025 15:55, (unconfirmed) No significant change was found Confirmed by Jonel Harris ([id number]) on 04/21/2025 10:58:43 PM Referred By: REFERRED SELF Confirmed By: Jonel Harris
--- NOTE | 2025-04-21 22:59 | Electrocardiogram Report ---
Test Reason : Blood Pressure : */* mmHG Vent. Rate : 121 BPM Atrial Rate : * BPM P-R Int : * ms QRS Dur : 90 ms QT Int : 330 ms P-R-T Axes : * 77 3 degrees QTcB Int : 468 ms Atrial fibrillation with rapid ventricular response Abnormal ECG When compared with ECG of 16-Apr-2025 12:01, (unconfirmed) No significant change was found Confirmed by Jonel Harris ([id number]) on 04/21/2025 10:59:23 PM Referred By: REFERRED SELF Confirmed By: Jonel Harris
== END 2025-04-20 19:07 | disposition home or self-care (01) ==
LOC: ED 15:48 → 2W 15:48